=== PATIENT | male | born 1940 | race Caucasian/White ===

== ENCOUNTER 2022-02-24 15:16 | Inpatient (IN) | payer OTHER, MEDICAID ==
[~2022-02-24] VITALS: Ht 162.6 cm; Wt 52.6 kg
[2022-02-24 15:29] VITALS: BP_SYST 159
--- NOTE | 2022-02-24 15:29 | NUR ---
Placed in room 6 . Placed on stone lathe operator, blood pressure machine and pulse oximeter. To gown for exam. Side rails up. Report given to IRMA NGUYEN.
--- NOTE | 2022-02-24 15:30 | NUR ---
first encounter to pt at this time. pt aubree moon from [facility] here c/o generalized weakness, not eating today. AOx1 baseline, resp even and unlabored. pt in gown and attached to bell captain. IVF given. vss nad. wctm.
--- NOTE | 2022-02-24 15:35 | NUR ---
ER at bedside examining patient.
[2022-02-24] MEDS: NACL 0.9% 1,000 ML IV ONE ×2 (16:00→16:07)
[2022-02-24 16:28] LABS: BASOPHILS % (AUTO) 0.2 % (0.0-2.0); EOSINOPHILS # (AUTO) 0.1 K/uL (0.0-0.4); EOSINOPHILS % (AUTO) 1.3 % (0.0-4.0); HEMATOCRIT 41.9 % (36-54); HEMOGLOBIN 13.6 g/dL (14.0-18.0); LYMPHOCYTES # (AUTO) 0.3 K/uL (1.0-5.5); LYMPHOCYTES % (AUTO) 3.2 % (20.5-51.5); MEAN CORPUSCULAR HEMOGLOBIN 26 pg (27-31); MEAN CORPUSCULAR HGB CONC 33 % (32-36); MEAN CORPUSCULAR VOLUME 81 fL (79.0-98.0); MONOCYTES # (AUTO) 0.5 K/uL (0.0-1.0); NEUTROPHILS # (AUTO) 7.4 K/uL (1.8-7.7); NEUTROPHILS % (AUTO) 89.3 % (40.0-70.0); PLATELET COUNT (AUTO) 285 K/uL (130-430); RED BLOOD CELL COUNT(AUTO) 5.17 MIL/uL (4.2-6.2); RED CELL DISTRIBUTION WIDTH 15.1 % (9.0-15.0); WHITE BLOOD COUNT (AUTO) 8.3 K/uL (4.8-10.8)
[2022-02-24] MEDS ORDERED: IPRATROPIUM/ALBUTEROL SULFATE 3 ML AMPUL.NEB (DUONEB) INH ONE (16:30)
--- NOTE | 2022-02-24 16:35 | NUR ---
RT at bedside for breathing tx
[2022-02-24 16:39] LABS: ANION GAP 10 (5-15); CALCIUM 8.4 mg/dL (8.4-11.0); CHLORIDE 112 mmol/L (98-107); CREATININE 1.62 mg/dL (0.55-1.30); GLUCOSE 173 mg/dL (70-99); POTASSIUM 3.7 mmol/L (3.5-5.1); UREA NITROGEN, BLOOD 39 mg/dL (8-21)
[2022-02-24 16:48] LABS: ALANINE AMINOTRANSFERASE 22 U/L (12-78); ALBUMIN 2.1 g/dL (3.4-4.8); ASPARTATE AMINOTRANSFERASE 35 U/L (10-37); TOTAL BILIRUBIN 0.7 mg/dL (0.0-1.0)
[2022-02-24] MEDS ORDERED: DONE10TA44 PO (17:06)
[2022-02-24] MEDS ORDERED: CLOP75TA32 PO (17:06)
[2022-02-24] MEDS ORDERED: MULT-1117 PO (17:06)
[2022-02-24] MEDS ORDERED: MEMA5TAB PO (17:06)
[2022-02-24] MEDS ORDERED: DOCU-144 PO (17:06)
[2022-02-24] MEDS ORDERED: LIP20 PO (17:06)
[2022-02-24 17:08] LABS: INR 1.1 (0.80-1.20); PROTHROMBIN TIME 11.3 SECS (9.5-12.5)
[2022-02-24] MEDS ORDERED: LEVE750T4 PO (17:09)
[2022-02-24] MEDS ORDERED: METO25TA6 PO (17:09)
--- NOTE | 2022-02-24 18:27 | NUR ---
in and out cathed, pt tolerated procedure well. very minimal urine output, 3cc. will try to send to lab for ua. IV bolusing for dehydration. pt saturated diaper, pt is cleaned and partial linens changed.
--- NOTE | 2022-02-24 18:42 | NUR ---
Admit bed requested Patient will be admitted to care of . Admitted to TELE unit. Diagnosis PNA Inpatient (Yes or No) YES Observation (Yes or No) NO Orientation concerns or request close to nursing station (Yes or No) NO Covid Status NEGATIVE On vent or bipap NO Isolation requirements NO Needs a sitter NO From Home (Yes or if No enter name of facility) [facility] Requires Dialysis (Yes or No) NO Med Rec Completed (Yes of No) YES
[2022-02-24] MEDS ORDERED: cefTRIAXone 1 GM IVPB PREMIX 50 ML IV ONE (18:45)
[2022-02-24] MEDS ORDERED: NACL 0.9% 1,000 ML IV ONE (18:45)
--- NOTE | 2022-02-24 19:18 | NUR ---
care endorsed to IRMA Vasquez
--- NOTE | 2022-02-24 19:20 | NUR ---
Assuming care for pt at this time. Pt awake and alert. Able to follow commands. Pt admitted to Tele at this time and pend room assignment. Pt RR even, nonlabored. No signs of pain. Vitals are WNL. Will cont to monitor.
[2022-02-24 21:00] VITALS: BP_SYST 128
--- NOTE | 2022-02-24 21:05 | NUR ---
ADMISSION NOTE Received patient from ER via gurney. Patient admitted with diagnosis of PNEUMONIA. Patient oriented to hospital routine, call light, toileting and safety-patient verbalized understanding.
[2022-02-24 22:00] VITALS: BP_SYST 139
--- NOTE | 2022-02-24 22:27 | NUR ---
at bedside Dr. Herrera at bedside to see pt. Addendum: 02/25/22 at 0239 by Angela Grubbs RN MD aware of elevated Trop, BNP, and lactic acid.
[2022-02-24] MEDS ORDERED: KCL 20 mEq in D5/0.45NS 1000mL 1,000 ML IV ONE (22:36)
[2022-02-24] MEDS ORDERED: LevALBUTEROL HCL 1.25 MG/0.5 ML *CONC.* VIAL.NEB (XOPENEX CONC.) INH PRN (22:45)
[2022-02-24] MEDS ORDERED: ACETAMINOPHEN 325 MG TABLET PO PRN (22:45)
[2022-02-24] MEDS: POTASSIUM CHLORIDE 20 MEQ in D5/0.45 NS 1,000 ML IV SCH (22:50)
[2022-02-24] MEDS ORDERED: AZITHROMYCIN 500 MG/VIAL (ZITHROMAX) IV ONE (23:08)
[2022-02-24] MEDS: AZITHROMYCIN 500 MG in NS 250 ML IV SCH (23:38)
[2022-02-24] MEDS: ENOXAPARIN SODIUM 40 MG/0.4 ML SYRINGE SUBCUT SCH (23:40)
--- NOTE | 2022-02-24 23:40 | NUR ---
IV antibiotic Zithromax administered at order rate L.FA 18G, good blood return. To monitor.
[2022-02-24] MEDS: LevALBUTEROL HCL 1.25 MG/0.5 ML *CONC.* VIAL.NEB (XOPENEX CONC.) INH SCH (23:59)
--- NOTE | 2022-02-25 00:12 | NUR ---
Pt receiving breathing treatment. O2 sat 93% on room air.
[2022-02-25 01:15] VITALS: BP_SYST 128
[2022-02-25] MEDS: LevALBUTEROL HCL 1.25 MG/0.5 ML *CONC.* VIAL.NEB (XOPENEX CONC.) INH SCH ×2 (07:18→15:00)
[2022-02-25 08:13] LABS: ANION GAP 10 (5-15); CALCIUM 8.1 mg/dL (8.4-11.0); CHLORIDE 114 mmol/L (98-107); CREATININE 1.43 mg/dL (0.55-1.30); GLUCOSE 157 mg/dL (70-99); POTASSIUM 4.4 mmol/L (3.5-5.1); UREA NITROGEN, BLOOD 35 mg/dL (8-21)
[2022-02-25] MEDS: CLOPIDOGREL BISULFATE 75 MG TABLET PO SCH (08:32)
[2022-02-25] MEDS: MULTIVITAMINS TAB 1 TABLET PO SCH (08:32)
[2022-02-25] MEDS: MEMANTINE HCL 5 MG TABLET PO SCH ×2 (08:32→21:30)
[2022-02-25] MEDS: levETIRAcetam 500 MG TABLET PO SCH ×2 (08:32→21:30)
[2022-02-25] MEDS: DOCUSATE SODIUM 100 MG CAPSULE PO SCH ×2 (08:32→21:30)
[2022-02-25] MEDS: METOPROLOL TARTRATE 25 MG TABLET PO SCH ×2 (08:33→21:31)
[2022-02-25] MEDS: POTASSIUM CHLORIDE 20 MEQ in D5/0.45 NS 1,000 ML IV SCH (11:05)
[2022-02-25 12:03] LABS: BASOPHILS # (AUTO) 0.1 K/uL (0.0-0.2); BASOPHILS % (AUTO) 0.8 % (0.0-2.0); EOSINOPHILS % (AUTO) 0.1 % (0.0-4.0); HEMATOCRIT 40.2 % (36-54); HEMOGLOBIN 13.1 g/dL (14.0-18.0); LYMPHOCYTES # (AUTO) 0.3 K/uL (1.0-5.5); LYMPHOCYTES % (AUTO) 4.1 % (20.5-51.5); MEAN CORPUSCULAR HEMOGLOBIN 26 pg (27-31); MEAN CORPUSCULAR HGB CONC 33 % (32-36); MEAN CORPUSCULAR VOLUME 81 fL (79.0-98.0); MONOCYTES # (AUTO) 0.4 K/uL (0.0-1.0); MONOCYTES % (AUTO) 4.9 % (1.7-9.3); NEUTROPHILS # (AUTO) 7.5 K/uL (1.8-7.7); NEUTROPHILS % (AUTO) 90.1 % (40.0-70.0); PLATELET COUNT (AUTO) 287 K/uL (130-430); RED BLOOD CELL COUNT(AUTO) 4.98 MIL/uL (4.2-6.2); RED CELL DISTRIBUTION WIDTH 14.9 % (9.0-15.0); WHITE BLOOD COUNT (AUTO) 8.3 K/uL (4.8-10.8)
--- NOTE | 2022-02-25 13:22 | NUR ---
Dietitian Recommendations *consider dysphagia evaluation (diagnosis of PNA, history of dysphagia) to determine appropriate liquid consistency *re-weigh the patient, admission weight of 58# documented 02/24 @ 2200 is likely in error; weight documented 02/24 at 1529 of 130# is also likely in error *encourage the patient to eat proteins first at meals *small, frequent meals as tolerated *RD to f/u and make appropriate supplement recommendation *check A1c Please refer to nutrition assessment for details. DENISSE, WILMER
[2022-02-25 15:31] VITALS: BP_SYST 133
--- NOTE | 2022-02-25 17:15 | NUR ---
CONSULTATION PAGED REASON FOR CONSULTATION BILATERAL PNEUMONIA WAS CONSULT CALED?Y PERSON WHO WAS NOTIFIED:MARIA DOLORES CONSULTING PHYSICIAN:DIVYA WATT ([employer] B[employer] WAREHOUSE RECEIVER)MARIA DOLORES GATE TECHNICIAN SPECIALTY:PLMONARY GATE TECHNICIAN PHONE NUMBER:[phone] REQUESTING PHYSICIAN:DELILAH RICKS
--- NOTE | 2022-02-25 17:31 | NUR ---
CONSULT: CARDIO CHF DR. AMEZQUITA [phone] S/W: AVTAR
[2022-02-25] MEDS ORDERED: cefTRIAXone 1 GM in D5W 50 ML IV SCH (18:45)
--- NOTE | 2022-02-25 19:35 | NUR ---
ROUNDS PATIENT RESTING COMFORTABLY IN BED, CONFUSED, VITALS STABLE, NO SIGNS OF ANY PAIN AND DISCOMFORT NOTED. ASSESSMENT DONE AND DOCUMENTED. SEE FLOWSHEET. NEEDS ATTENDED TO. SAFETY AND FALL MEASURES IN PLACED. CALL LIGHT PLACED WITHIN REACH.
[2022-02-25 20:00] VITALS: BP_SYST 121
[2022-02-25] MEDS: ATORVASTATIN 20 MG TABLET PO SCH (21:30)
[2022-02-25] MEDS: DONEPEZIL HCL 5 MG TABLET (ARICEPT) PO SCH (21:30)
[2022-02-25] MEDS: MEGESTROL ACETATE 400 MG/10 ML UDC PO SCH (21:30)
[2022-02-25] MEDS: AZITHROMYCIN 500 MG in NS 250 ML IV SCH (21:56)
[2022-02-25] MEDS: ENOXAPARIN SODIUM 40 MG/0.4 ML SYRINGE SUBCUT SCH (22:08)
[2022-02-26] MEDS: LevALBUTEROL HCL 1.25 MG/0.5 ML *CONC.* VIAL.NEB (XOPENEX CONC.) INH SCH ×4 (00:11→23:24)
--- NOTE | 2022-02-26 00:14 | NUR ---
PATIENT RESTING: Patient resting quietly. No acute distress noted. Vital signs within normal range.
[2022-02-26 00:15] VITALS: BP_SYST 127
[2022-02-26] MEDS: POTASSIUM CHLORIDE 20 MEQ in D5/0.45 NS 1,000 ML IV SCH ×2 (03:55→20:45)
--- NOTE | 2022-02-26 06:50 | NUR ---
CLOSING NOTES PATIENT AWAKE, VITALS STABLE, REFUSED BLOOD DRAW BY LAB FOR A.M. LABS AT THIS TIME AND WILL COME BACK LATER. ALL NEEDS ATTENDED TO. WILL ENDORSE TO INCOMING SHIFT.
[2022-02-26 08:00] VITALS: BP_SYST 134
--- NOTE | 2022-02-26 08:00 | NUR ---
Recd pt calm, provided pt with breakfast, pt able to sit up in bed and tolerated puree diet. All needs anticipated and met.
[2022-02-26] MEDS: levETIRAcetam 500 MG TABLET PO SCH ×2 (08:17→22:11)
[2022-02-26] MEDS: MEGESTROL ACETATE 400 MG/10 ML UDC PO SCH ×2 (08:17→22:12)
[2022-02-26] MEDS: CLOPIDOGREL BISULFATE 75 MG TABLET PO SCH (08:17)
[2022-02-26] MEDS: MULTIVITAMINS TAB 1 TABLET PO SCH (08:17)
[2022-02-26] MEDS: METOPROLOL TARTRATE 25 MG TABLET PO SCH ×2 (08:18→22:12)
[2022-02-26] MEDS: DOCUSATE SODIUM 100 MG CAPSULE PO SCH ×2 (08:18→22:11)
[2022-02-26] MEDS: MEMANTINE HCL 5 MG TABLET PO SCH ×2 (08:19→22:11)
[2022-02-26 09:04] LABS: ANION GAP 8 (5-15); CALCIUM 8.4 mg/dL (8.4-11.0); CHLORIDE 117 mmol/L (98-107); GLUCOSE 141 mg/dL (70-99); POTASSIUM 4.6 mmol/L (3.5-5.1); UREA NITROGEN, BLOOD 39 mg/dL (8-21)
[2022-02-26 09:22] LABS: TOTAL BILIRUBIN 0.5 mg/dL (0.0-1.0)
[2022-02-26 09:36] LABS: ALANINE AMINOTRANSFERASE 87 U/L (12-78); ASPARTATE AMINOTRANSFERASE 115 U/L (10-37)
--- NOTE | 2022-02-26 11:00 | NUR ---
Dr Herrera at the bedside, assess pt. pt gets confused and agitated at time, encouraged pt to eat and drink fluids.
[2022-02-26 12:00] VITALS: BP_SYST 131
[2022-02-26] MEDS: PIPERACILLIN/TAZO 2.25G/DEX-IS 50 ML IV SCH ×2 (12:37→18:25)
[2022-02-26] MEDS: ASPIRIN 81 MG TAB.CHEW PO SCH (12:42)
[2022-02-26 14:42] LABS: BASOPHILS # (AUTO) 0.3 K/uL (0.0-0.2); BASOPHILS % (AUTO) 3.1 % (0.0-2.0); EOSINOPHILS # (AUTO) 0.1 K/uL (0.0-0.4); EOSINOPHILS % (AUTO) 0.7 % (0.0-4.0); HEMATOCRIT 42.2 % (36-54); HEMOGLOBIN 13.8 g/dL (14.0-18.0); LYMPHOCYTES # (AUTO) 0.5 K/uL (1.0-5.5); LYMPHOCYTES % (AUTO) 5.9 % (20.5-51.5); MEAN CORPUSCULAR HEMOGLOBIN 27 pg (27-31); MEAN CORPUSCULAR HGB CONC 33 % (32-36); MEAN CORPUSCULAR VOLUME 82 fL (79.0-98.0); MONOCYTES # (AUTO) 0.5 K/uL (0.0-1.0); MONOCYTES % (AUTO) 6.4 % (1.7-9.3); NEUTROPHILS # (AUTO) 7.1 K/uL (1.8-7.7); NEUTROPHILS % (AUTO) 83.9 % (40.0-70.0); PLATELET COUNT (AUTO) 312 K/uL (130-430); RED BLOOD CELL COUNT(AUTO) 5.15 MIL/uL (4.2-6.2); RED CELL DISTRIBUTION WIDTH 15.8 % (9.0-15.0); WHITE BLOOD COUNT (AUTO) 8.4 K/uL (4.8-10.8)
--- NOTE | 2022-02-26 15:00 | NUR ---
Full bath given, all linen changed, pt had small bm, skin kept clean and dry.
[2022-02-26 16:00] VITALS: BP_SYST 128
[2022-02-26 19:07] LABS: CHOLESTEROL 112 mg/dL (<200); HDL CHOLESTEROL 49 mg/dL (>45); LDL CHOLESTEROL 68 mg/dL (<100); TRIGLYCERIDES 67 mg/dL (30-150)
--- NOTE | 2022-02-26 19:35 | NUR ---
ROUNDS PATIENT RESTING IN BED, VITALS STABLE, NO SIGNS OF ANY PAIN AND DISCOMFORT NOTED. NEEDS ATTENDED TO. SAFETY AND FALL MEASURES IN PLACED. CALL LIGHT PLACED WITHIN REACH.
[2022-02-26] MEDS: ATORVASTATIN 20 MG TABLET PO SCH (22:11)
[2022-02-26] MEDS: ENOXAPARIN SODIUM 40 MG/0.4 ML SYRINGE SUBCUT SCH (22:11)
[2022-02-26] MEDS: DONEPEZIL HCL 5 MG TABLET (ARICEPT) PO SCH (22:11)
[2022-02-26] MEDS: AZITHROMYCIN 500 MG in NS 250 ML IV SCH (22:22)
[2022-02-27] MEDS: PIPERACILLIN/TAZO 2.25G/DEX-IS 50 ML IV SCH ×4 (00:13→17:52)
[2022-02-27 01:02] VITALS: BP_SYST 160
--- NOTE | 2022-02-27 06:15 | NUR ---
IV REINSERTION IV FOUND TO BE OUT, REINSERTED ON THE LEFT UPPER ARM G.22, PATENT.
[2022-02-27] MEDS: LevALBUTEROL HCL 1.25 MG/0.5 ML *CONC.* VIAL.NEB (XOPENEX CONC.) INH SCH ×3 (07:16→23:48)
[2022-02-27 08:00] VITALS: BP_SYST 144
--- NOTE | 2022-02-27 08:00 | NUR ---
Recd pt still sleepy this morning, encouraged pt to eat breakfast and drink fluids, IVF at 60ml/hr. continue to monitor pt closely.
[2022-02-27] MEDS: METOPROLOL TARTRATE 25 MG TABLET PO SCH ×2 (08:44→21:00)
[2022-02-27] MEDS: MEGESTROL ACETATE 400 MG/10 ML UDC PO SCH ×2 (08:44→21:00)
[2022-02-27] MEDS: levETIRAcetam 500 MG TABLET PO SCH ×2 (08:44→21:00)
[2022-02-27] MEDS: DOCUSATE SODIUM 100 MG CAPSULE PO SCH ×2 (08:44→21:00)
[2022-02-27] MEDS: ASPIRIN 81 MG TAB.CHEW PO SCH (08:44)
[2022-02-27] MEDS: MULTIVITAMINS TAB 1 TABLET PO SCH (08:45)
[2022-02-27] MEDS: MEMANTINE HCL 5 MG TABLET PO SCH ×2 (08:45→21:00)
[2022-02-27] MEDS: CLOPIDOGREL BISULFATE 75 MG TABLET PO SCH (08:45)
[2022-02-27 11:26] VITALS: BP_SYST 149
--- NOTE | 2022-02-27 11:26 | NUR ---
rt notes 1126 Pt on 2LNC, per MD Moreno increased o2 to 4LNC. pt not cooperative, keeps removing o2. will cont to monitor pt.
--- NOTE | 2022-02-27 11:30 | NUR ---
Dr Moreno at the bedside, ordered increase 02 to 4 L n/c and keep pt npo due to more lethargic. orders carried out. 02 sats 94% on 4 Liters. continue to monitor pt closely.
[2022-02-27] MEDS ORDERED: FUROSEMIDE 40 MG/4 ML VIAL IVP ONE (11:45)
--- NOTE | 2022-02-27 12:30 | NUR ---
Chest ultrasound done at the bedside.
--- NOTE | 2022-02-27 13:15 | NUR ---
Dr Herrera at the bedside, aware pt npo and pt more lethargic. Pt remains SR at 89 on the monitor. pt had small bm, pt's skin kept clean and dry. continue to monitor pt closely.
[2022-02-27 15:30] VITALS: BP_SYST 131
--- NOTE | 2022-02-27 16:00 | NUR ---
Obtained order for PICC line placement, called son twice, unable to leave a msg. Will continue to call, to obtain informed consent for PICC line, since pt has h/o dementia and unable to sign the form.
[2022-02-27] MEDS: POTASSIUM CHLORIDE 20 MEQ in D5/0.45 NS 1,000 ML IV SCH (17:58)
--- NOTE | 2022-02-27 18:20 | NUR ---
PT WAS SEEN FOR DYSPHAGIA. PT HAD MILD POCKETING, SEVERE DELAY AND COUGH FOR PUREE DIET WITH HTL. RECOMMENDATION NOTHING BY MOUTH
[2022-02-27 20:00] VITALS: BP_SYST 143
[2022-02-27] MEDS: ATORVASTATIN 20 MG TABLET PO SCH (21:00)
[2022-02-27] MEDS: DONEPEZIL HCL 5 MG TABLET (ARICEPT) PO SCH (21:00)
[2022-02-27] MEDS: FUROSEMIDE 20 MG/2 ML VIAL IVP SCH (22:06)
[2022-02-27] MEDS: AZITHROMYCIN 500 MG in NS 250 ML IV SCH (22:07)
[2022-02-27] MEDS: ENOXAPARIN SODIUM 40 MG/0.4 ML SYRINGE SUBCUT SCH (22:08)
[2022-02-28] VITALS: BP_SYST 145
[2022-02-28] MEDS ORDERED: PIPERACILLIN/TAZOBACTAM 2.25 GM VIAL IV ONE (01:07)
[2022-02-28] MEDS: PIPERACILLIN/TAZO 2.25G/DEX-IS 50 ML IV SCH ×4 (01:58→18:09)
[2022-02-28] MEDS: POTASSIUM CHLORIDE 20 MEQ in D5/0.45 NS 1,000 ML IV SCH (05:09)
[2022-02-28 06:53] LABS: BASOPHILS % (AUTO) 0.2 % (0.0-2.0); EOSINOPHILS % (AUTO) 0.2 % (0.0-4.0); HEMATOCRIT 43.5 % (36-54); HEMOGLOBIN 14.4 g/dL (14.0-18.0); LYMPHOCYTES # (AUTO) 0.3 K/uL (1.0-5.5); MEAN CORPUSCULAR HEMOGLOBIN 27 pg (27-31); MEAN CORPUSCULAR HGB CONC 33 % (32-36); MEAN CORPUSCULAR VOLUME 81 fL (79.0-98.0); MONOCYTES # (AUTO) 0.6 K/uL (0.0-1.0); MONOCYTES % (AUTO) 5.7 % (1.7-9.3); NEUTROPHILS # (AUTO) 9.6 K/uL (1.8-7.7); NEUTROPHILS % (AUTO) 90.9 % (40.0-70.0); PLATELET COUNT (AUTO) 269 K/uL (130-430); RED BLOOD CELL COUNT(AUTO) 5.36 MIL/uL (4.2-6.2); RED CELL DISTRIBUTION WIDTH 15.3 % (9.0-15.0); WHITE BLOOD COUNT (AUTO) 10.6 K/uL (4.8-10.8)
[2022-02-28 07:12] LABS: ANION GAP 11 (5-15); CALCIUM 8.1 mg/dL (8.4-11.0); CHLORIDE 115 mmol/L (98-107); GLUCOSE 104 mg/dL (70-99); POTASSIUM 3.7 mmol/L (3.5-5.1); UREA NITROGEN, BLOOD 40 mg/dL (8-21)
[2022-02-28] MEDS: LevALBUTEROL HCL 1.25 MG/0.5 ML *CONC.* VIAL.NEB (XOPENEX CONC.) INH SCH ×3 (07:16→23:46)
[2022-02-28 07:21] LABS: ALANINE AMINOTRANSFERASE 64 U/L (12-78); ALBUMIN 1.9 g/dL (3.4-4.8); ASPARTATE AMINOTRANSFERASE 47 U/L (10-37); TOTAL BILIRUBIN 0.8 mg/dL (0.0-1.0)
[2022-02-28 07:53] VITALS: BP_SYST 145
[2022-02-28 08:00] VITALS: BP_SYST 110
[2022-02-28] MEDS: METOPROLOL TARTRATE 25 MG TABLET PO SCH ×2 (09:00→21:00)
[2022-02-28] MEDS: levETIRAcetam 500 MG TABLET PO SCH ×2 (09:00→21:00)
[2022-02-28] MEDS: ASPIRIN 81 MG TAB.CHEW PO SCH (09:00)
[2022-02-28] MEDS: DOCUSATE SODIUM 100 MG CAPSULE PO SCH ×2 (09:00→21:00)
[2022-02-28] MEDS: MEGESTROL ACETATE 400 MG/10 ML UDC PO SCH ×2 (09:00→21:00)
[2022-02-28] MEDS: CLOPIDOGREL BISULFATE 75 MG TABLET PO SCH (09:00)
[2022-02-28] MEDS: MULTIVITAMINS TAB 1 TABLET PO SCH (09:00)
[2022-02-28] MEDS: MEMANTINE HCL 5 MG TABLET PO SCH ×2 (09:00→21:00)
[2022-02-28 09:12] LABS: INR 1.3 (0.80-1.20); PROTHROMBIN TIME 12.9 SECS (9.5-12.5)
[2022-02-28] MEDS: FUROSEMIDE 20 MG/2 ML VIAL IVP SCH (09:22)
[2022-02-28 11:27] VITALS: BP_SYST 148
[2022-02-28 15:29] VITALS: BP_SYST 139
[2022-02-28] MEDS ORDERED: *PPN PER PHARMACY XX PRN (19:30)
[2022-02-28] MEDS: KCL 20 mEq in D5/0.45NS 1000mL 1,000 ML IV SCH (19:30)
[2022-02-28 20:08] VITALS: BP_SYST 155
[2022-02-28] MEDS: ATORVASTATIN 20 MG TABLET PO SCH (21:00)
[2022-02-28] MEDS: DONEPEZIL HCL 5 MG TABLET (ARICEPT) PO SCH (21:00)
[2022-02-28] MEDS: ENOXAPARIN SODIUM 40 MG/0.4 ML SYRINGE SUBCUT SCH (23:33)
[2022-02-28] MEDS: AZITHROMYCIN 500 MG in NS 250 ML IV SCH (23:35)
[2022-03-01] MEDS: PIPERACILLIN/TAZO 2.25G/DEX-IS 50 ML IV SCH ×4 (00:46→18:26)
[2022-03-01] MEDS: KCL 20 mEq in D5/0.45NS 1000mL 1,000 ML IV SCH (06:08)
--- NOTE | 2022-03-01 06:17 | NUR ---
STAFF ENTERED WRONG AMOUNT FOR PO. PATIENT IS STILL NPO.
[2022-03-01] MEDS: LevALBUTEROL HCL 1.25 MG/0.5 ML *CONC.* VIAL.NEB (XOPENEX CONC.) INH SCH ×2 (07:06→15:28)
[2022-03-01 07:07] LABS: BASOPHILS % (AUTO) 0.2 % (0.0-2.0); EOSINOPHILS % (AUTO) 0.4 % (0.0-4.0); HEMATOCRIT 45.3 % (36-54); LYMPHOCYTES # (AUTO) 0.2 K/uL (1.0-5.5); LYMPHOCYTES % (AUTO) 2.4 % (20.5-51.5); MEAN CORPUSCULAR HEMOGLOBIN 27 pg (27-31); MEAN CORPUSCULAR HGB CONC 33 % (32-36); MEAN CORPUSCULAR VOLUME 81 fL (79.0-98.0); MONOCYTES # (AUTO) 0.4 K/uL (0.0-1.0); MONOCYTES % (AUTO) 4.6 % (1.7-9.3); NEUTROPHILS # (AUTO) 8.3 K/uL (1.8-7.7); NEUTROPHILS % (AUTO) 92.4 % (40.0-70.0); PLATELET COUNT (AUTO) 288 K/uL (130-430); RED CELL DISTRIBUTION WIDTH 15.5 % (9.0-15.0)
[2022-03-01] MEDS: MULTIVITAMINS TAB 1 TABLET PO SCH (09:00)
[2022-03-01] MEDS: METOPROLOL TARTRATE 25 MG TABLET PO SCH ×2 (09:00→21:04)
[2022-03-01] MEDS: MEGESTROL ACETATE 400 MG/10 ML UDC PO SCH ×2 (09:00→21:05)
[2022-03-01] MEDS: DOCUSATE SODIUM 100 MG CAPSULE PO SCH ×2 (09:00→20:58)
[2022-03-01] MEDS: ASPIRIN 81 MG TAB.CHEW PO SCH (09:00)
[2022-03-01] MEDS: CLOPIDOGREL BISULFATE 75 MG TABLET PO SCH (09:00)
[2022-03-01] MEDS: MEMANTINE HCL 5 MG TABLET PO SCH ×2 (09:00→21:05)
[2022-03-01] MEDS: levETIRAcetam 500 MG TABLET PO SCH ×2 (09:00→21:05)
[2022-03-01] MEDS: FUROSEMIDE 20 MG/2 ML VIAL IVP SCH (09:28)
[2022-03-01 09:46] LABS: ALANINE AMINOTRANSFERASE 57 U/L (12-78); ANION GAP 13 (5-15); ASPARTATE AMINOTRANSFERASE 46 U/L (10-37); CALCIUM 8.6 mg/dL (8.4-11.0); CHLORIDE 115 mmol/L (98-107); CREATININE 1.66 mg/dL (0.55-1.30); GLUCOSE 123 mg/dL (70-99); PHOSPHORUS 2.9 mg/dL (2.7-4.5); POTASSIUM 3.5 mmol/L (3.5-5.1); TOTAL BILIRUBIN 0.9 mg/dL (0.0-1.0); UREA NITROGEN, BLOOD 36 mg/dL (8-21)
[2022-03-01 10:53] LABS: TRIGLYCERIDES 94 mg/dL (30-150)
[2022-03-01 12:38] VITALS: BP_SYST 142
[2022-03-01 16:19] VITALS: BP_SYST 150
[2022-03-01 20:00] VITALS: BP_SYST 121
[2022-03-01] MEDS: MVI IV SCH ×7 (20:05)
[2022-03-01] MEDS: K PHOS IV SCH ×7 (20:05)
[2022-03-01] MEDS: [UNRECOGNIZED DRUG - OTHER] IV SCH ×7 (20:05)
[2022-03-01] MEDS: POTASSIUM ACETATE IV SCH ×7 (20:05)
[2022-03-01] MEDS: TPN PERIPHERAL IV SCH ×7 (20:05)
[2022-03-01] MEDS: DONEPEZIL HCL 5 MG TABLET (ARICEPT) PO SCH (21:04)
[2022-03-01] MEDS: ATORVASTATIN 20 MG TABLET PO SCH (21:05)
[2022-03-02 00:22] VITALS: BP_SYST 122
[2022-03-02] MEDS: PIPERACILLIN/TAZO 2.25G/DEX-IS 50 ML IV SCH ×4 (00:44→17:02)
[2022-03-02] MEDS: ENOXAPARIN SODIUM 40 MG/0.4 ML SYRINGE SUBCUT SCH (00:45)
[2022-03-02] MEDS: LevALBUTEROL HCL 1.25 MG/0.5 ML *CONC.* VIAL.NEB (XOPENEX CONC.) INH SCH ×3 (02:18→14:40)
[2022-03-02] MEDS: KCL 20 mEq in D5/0.45NS 1000mL 1,000 ML IV SCH (04:53)
[2022-03-02 08:00] VITALS: BP_SYST 159
[2022-03-02] MEDS: ASPIRIN 81 MG TAB.CHEW PO SCH (09:00)
[2022-03-02] MEDS: CLOPIDOGREL BISULFATE 75 MG TABLET PO SCH (09:00)
[2022-03-02] MEDS: DOCUSATE SODIUM 100 MG CAPSULE PO SCH ×2 (09:00→20:49)
[2022-03-02] MEDS: METOPROLOL TARTRATE 25 MG TABLET PO SCH ×2 (09:00→20:49)
[2022-03-02] MEDS: MEMANTINE HCL 5 MG TABLET PO SCH ×2 (09:00→20:50)
[2022-03-02] MEDS: MULTIVITAMINS TAB 1 TABLET PO SCH (09:00)
[2022-03-02] MEDS: MEGESTROL ACETATE 400 MG/10 ML UDC PO SCH ×2 (09:00→20:50)
[2022-03-02] MEDS: levETIRAcetam 500 MG TABLET PO SCH ×2 (09:00→20:49)
[2022-03-02] MEDS: FUROSEMIDE 20 MG/2 ML VIAL IVP SCH (09:15)
--- NOTE | 2022-03-02 09:41 | NUR ---
S/W DR. VINSON, NEW ORDER FOR GI CONSULT WITH DR. JOINER FOR PEG PLACEMENT AND MD ORDER TO MAKE TOTAL OF IVF (40 MLS/HR) AND TPN (40 MLS/HR) AT 80 MLS/HR
[2022-03-02 09:51] LABS: ANION GAP 8 (5-15); CALCIUM 8.4 mg/dL (8.4-11.0); CHLORIDE 115 mmol/L (98-107); GLUCOSE 198 mg/dL (70-99); POTASSIUM 3.9 mmol/L (3.5-5.1); UREA NITROGEN, BLOOD 43 mg/dL (8-21)
[2022-03-02 09:56] LABS: ALANINE AMINOTRANSFERASE 84 U/L (12-78); ALBUMIN 1.8 g/dL (3.4-4.8); ASPARTATE AMINOTRANSFERASE 82 U/L (10-37); TOTAL BILIRUBIN 0.9 mg/dL (0.0-1.0)
--- NOTE | 2022-03-02 09:59 | NUR ---
CONSULTATION PAGED REASON FOR CONSULTATION:PEG PLACEMENT WAS CONSULT CALLED?Y PERSON WHO WAS NOTIFIED:TELLY CONSULTING PHYSICIAN:JORI WANG (CHRISTIAN [employer] GREEN CHAIN MARKER) FUR LINER SPECIALTYGI: FUR LINER PHONE NUMBER:[phone] REQUESTING PHYSICIAN:DELILAH RICKS
[2022-03-02] MEDS ORDERED: FUROSEMIDE 20 MG/2 ML VIAL IVP ONE (12:00)
--- NOTE | 2022-03-02 12:00 | NUR ---
RICHAR POWERS, INFORMED HIM REGARDING PT'S BREATHING IS SHALLOW AND PT NOTED TO BE CONGESTED. ON O2 2L NC, SATURATING 89-94%. NEW ORDERS RECEIVED: DC IVF, CONTINUE TPN, CHANGED NC TO 4L, DO STAT ABG, GIVE EXTRA DOSE OF 20MG LASIX IVP, AND PLACE HICKMAN CATHETER, 16 BULGARIAN, FOR STRICT I&O. Addendum: 03/02/22 at 1340 by Thirty one IRMA Elliott RN PT NOW SATURATING 94-96%, ON 4L NC, BREATHING LESS SHALLOW AND PT LOOKS MORE COMFORTABLE THAN EARLIER. WILL CONTINUE TO MONITOR PT CLOSELY. Addendum: 03/02/22 at 1712 by Thirty one IRMA Elliott RN DR. POWERS ROUNDING IN THE UNIT. PER MD CHANGE NC TO OXIMIZER. RT DONE. PT SATURATING 94-96% MORE STABLE. WILL CONTINUE TO MONITOR PT CLOSELY.
[2022-03-02 12:44] VITALS: BP_SYST 153
[2022-03-02 16:26] VITALS: BP_SYST 164
[2022-03-02] MEDS ORDERED: hydrALAZINE HCL 20 MG/ML VIAL IVP PRN (16:30)
[2022-03-02 17:04] VITALS: BP_SYST 156
--- NOTE | 2022-03-02 17:11 | NUR ---
HYDRALAZINE GIVEN PRN FOR SBP 160-170S.
--- NOTE | 2022-03-02 18:15 | NUR ---
PT'S BREATHING STATUS IS STABLE BUT NOTED STILL TO BE SHALLOW BUT O2 SAT IS MORE STABLE AND NOT DESATURATING ON OXIMIZER 7L, 94-96%. DR. VINSON AND DR. POWERS EXAMINED PT AND PER MD JUST CONTINUE TO MONITOR PT. PT WILL HAVE BIPAP PRN FOR RESPIRATORY DISTRESS. ALL CARE NEEDS MET. PLACED AN OPTIFOAM DRESSING OVER BONY PROMINENCE OF SACRAL AREA TO PREVENT SKIN BREAKDOWN. PT WAS TURNED EVERY 2 HOURS THROUGHOUT THE DAY, HEELS OFFLOADED. FALL/SAFETY/ASPIRATION/COMFORT/SEIZURE MEASURES IN PLACE. BED IN LOW POSITION. WILL ENDORSE CARE TO PM NURSE. Addendum: 03/02/22 at 1917 by Thirty one IRMA Elliott RN PT'S BREATHING STATUS SEEMS TO WORSEN AT THIS TIME, PT NOT RESPONSIVE. BIPAP PLACED BY RT. RICHAR POWERS AND ALISSON. ENDORSED TO IRMA VILLALOBOS, TO F/U.
[2022-03-02 19:32] VITALS: BP_SYST 159
[2022-03-02] MEDS: FAT EMULSIONS 250 ML IV SCH (20:39)
[2022-03-02] MEDS: POTASSIUM ACETATE IV SCH ×7 (20:42)
[2022-03-02] MEDS: TPN PERIPHERAL IV SCH ×7 (20:42)
[2022-03-02] MEDS: [UNRECOGNIZED DRUG - OTHER] IV SCH ×7 (20:42)
[2022-03-02] MEDS: K PHOS IV SCH ×7 (20:42)
[2022-03-02] MEDS: MVI IV SCH ×7 (20:42)
[2022-03-02] MEDS: DONEPEZIL HCL 5 MG TABLET (ARICEPT) PO SCH (20:49)
[2022-03-02] MEDS: ATORVASTATIN 20 MG TABLET PO SCH (20:49)
[2022-03-02] MEDS ORDERED: [UNRECOGNIZED DRUG - OTHER] IV ONE (21:00)
[2022-03-02] MEDS ORDERED: NS IV ONE (21:00)
[2022-03-03] VITALS (18 sets, daily range): BP systolic 62–150
[2022-03-03] MEDS: PIPERACILLIN/TAZO 2.25G/DEX-IS 50 ML IV SCH ×5 (00:12→23:36)
[2022-03-03] MEDS: ENOXAPARIN SODIUM 40 MG/0.4 ML SYRINGE SUBCUT SCH ×2 (00:13→23:28)
[2022-03-03] MEDS: LevALBUTEROL HCL 1.25 MG/0.5 ML *CONC.* VIAL.NEB (XOPENEX CONC.) INH SCH ×4 (00:36→23:29)
--- NOTE | 2022-03-03 07:05 | NUR ---
Received report from shift supervisor rn RN and assumed patient care.
--- NOTE | 2022-03-03 07:10 | NUR ---
Upon assessment, patient's is using accessory muscles to to breath. Saturation is 85%s in NC oxymizer of 15L, informed RT, will call Dr. Herrera for further details. 0730: RT at bedside, placed patient on bipap 100%, still waiting for Dr. Herrera to call back. Will reinforce if needed throughout the shift. 15: Dr. Herrera called back, informed about patient's use of accessory muscles to breathe and now was placed on bipap at 100% saturating in the 95-100%. No additional orders noted at the moment and said OK to move patient to ICU. Will inform dye house vat worker for further details.
[2022-03-03 07:44] LABS: BASOPHILS % (AUTO) 0.2 % (0.0-2.0); HEMATOCRIT 46.9 % (36-54); LYMPHOCYTES # (AUTO) 0.1 K/uL (1.0-5.5); LYMPHOCYTES % (AUTO) 0.6 % (20.5-51.5); MEAN CORPUSCULAR VOLUME 83 fL (79.0-98.0); MONOCYTES # (AUTO) 0.5 K/uL (0.0-1.0); MONOCYTES % (AUTO) 3.6 % (1.7-9.3); NEUTROPHILS # (AUTO) 14.3 K/uL (1.8-7.7); NEUTROPHILS % (AUTO) 95.6 % (40.0-70.0); PLATELET COUNT (AUTO) 251 K/uL (130-430); RED BLOOD CELL COUNT(AUTO) 5.64 MIL/uL (4.2-6.2); RED CELL DISTRIBUTION WIDTH 16.3 % (9.0-15.0); WHITE BLOOD COUNT (AUTO) 14.9 K/uL (4.8-10.8)
--- NOTE | 2022-03-03 07:45 | NUR ---
RT NOTES OBSERVED PT FISH GULPING WITH RESPIRATORY RATE OF 42 BREATHS PER MINUTE AND LOW SPO2 79% ON 12 LPM OXYMIZER. IMMEDIATELY PLACED PT ON BIPAP PER PRN ORDER 05/31 100% FIO2. NOTIFIED MONROE [place]INTANA TO CALL DR VINSON. PT SPO2 INCREASED TO 99% ON BIPAP. RESPIRATORY RATE STILL IN 36-[address] VINSON ORDERED TO SEND PT TO ICU. Addendum: 03/03/22 at 0844 by Rl Phelps RT Amended: Links added.
[2022-03-03] MEDS ORDERED: MIDAZOLAM HCL 5 MG/5 ML VIAL ONE ×2 (08:22→11:32)
[2022-03-03] MEDS ORDERED: fentaNYL CITRATE/PF 100 MCG/2 ML AMP ONE (08:22)
[2022-03-03] MEDS ORDERED: CEFAZOLIN 1 GM IVPB PREMIX 50 ML IV ONE (08:30)
[2022-03-03 08:39] LABS: ALBUMIN 1.6 g/dL (3.4-4.8); ANION GAP 14 (5-15); CALCIUM 8.5 mg/dL (8.4-11.0); CHLORIDE 114 mmol/L (98-107); CREATININE 2.65 mg/dL (0.55-1.30); GLUCOSE 161 mg/dL (70-99); PHOSPHORUS 5.5 mg/dL (2.7-4.5); POTASSIUM 4.3 mmol/L (3.5-5.1); UREA NITROGEN, BLOOD 61 mg/dL (8-21)
[2022-03-03] MEDS: DOCUSATE SODIUM 100 MG CAPSULE PO SCH ×2 (09:00→21:30)
[2022-03-03] MEDS: levETIRAcetam 500 MG TABLET PO SCH (09:00)
[2022-03-03] MEDS: MEGESTROL ACETATE 400 MG/10 ML UDC PO SCH ×2 (09:00→21:31)
[2022-03-03] MEDS: MEMANTINE HCL 5 MG TABLET PO SCH ×2 (09:00→21:32)
[2022-03-03] MEDS: CLOPIDOGREL BISULFATE 75 MG TABLET PO SCH (09:00)
[2022-03-03] MEDS: MULTIVITAMINS TAB 1 TABLET PO SCH (09:00)
[2022-03-03] MEDS: ASPIRIN 81 MG TAB.CHEW PO SCH (09:00)
[2022-03-03] MEDS: METOPROLOL TARTRATE 25 MG TABLET PO SCH ×2 (09:00→21:31)
[2022-03-03] MEDS: FUROSEMIDE 20 MG/2 ML VIAL IVP SCH (09:36)
[2022-03-03 10:10] LABS: ALANINE AMINOTRANSFERASE 333 U/L (12-78); ASPARTATE AMINOTRANSFERASE 458 U/L (10-37)
--- NOTE | 2022-03-03 10:12 | NUR ---
Received pt from [facility] and report received from Madonna SOLIS. Pt tachypnic and RR rate 30's on bipap 05/31/100%. HR 112 and 02 sats 92%. Pt using accessory muscles to breath and barley opens eyes to same. Does not follow instructions and lying in bed. Right PICC line with tpn at 40 and lipids at 5 and NS 3cc/hr. ABG ordered. RT at bedside.
--- NOTE | 2022-03-03 10:12 | NUR ---
Transferred patient to ICU 7, provided bedside report to IRMA Owens. Patient had no complications noted during the transfer over, RT at bedside, informed Dr. Herrera about the transfer. No additional orders noted at the moment, will reinforce if needed throughout the shift.
--- NOTE | 2022-03-03 10:40 | NUR ---
BP labile and low at times, SBP 80's and 90's. Dr. frye made aware and orders for levophed if needed given.
[2022-03-03] MEDS ORDERED: NOREPINEPHRINE BITARTRATE 4 MG in NS 246 ML IV PRN (10:45)
--- NOTE | 2022-03-03 10:52 | NUR ---
Dr. Cisse in to see pt. No orders left. call out to Dr. Moreno to inform him of the pts transfer to ICU.
--- NOTE | 2022-03-03 11:02 | NUR ---
Spoke with regarding pts condition. Reported ABG's and that pt is using accessory muscles to breath and is tachypnic , rate in the 30's with stats 70-80's. Orders left for intubation and ER called.
--- NOTE | 2022-03-03 11:30 | NUR ---
Pt intubated with a 7.5 ET taped 24cm lip line by Dr. Moreno. CXR done and reviewed by Dr. Moreno. Vent settings AC 20/350/100%/P3. Pt moving hands toward ET and restraints applied to keep pt from removing ET. SR on monitor. Will monitor for distress on the ventilator.
--- NOTE | 2022-03-03 11:30 | NUR ---
rt notes 1130 Pt was intubated by MD Moreno, AC20, 350VT ,PEEP 3 ,100% FIO2, 7.5/24CM LL. CO2 DETECTOR COLOR CHANGED TO YELLOW . BILATERAL CX RISE SEEN/HEARD.PT SATURATING 98%. PER MD ABG IN 1HOUR.
[2022-03-03] MEDS: ALBUMIN HUMAN 25% 50 ML IV SCH ×3 (12:02→23:36)
[2022-03-03] MEDS: PROPOFOL DRIP 100 ML IV PRN (12:12)
--- NOTE | 2022-03-03 12:30 | NUR ---
Diprivan started at 10 mcgs/kg/min for comfort on the ventilator.
[2022-03-03 12:53] LABS: MEAN CORPUSCULAR HEMOGLOBIN 27 pg (27-31); MEAN CORPUSCULAR HGB CONC 32 % (32-36)
--- NOTE | 2022-03-03 14:22 | NUR ---
rt notes 1422 Per PO2 ABG results, decreased fio2 to 50%. pt saturating 98%. will cont to monitor pt.
[2022-03-03] MEDS: METHYLPREDNISOLONE SOD SUCC 40 MG/ML VIAL IVP SCH (17:49)
--- NOTE | 2022-03-03 18:04 | NUR ---
Resting comfortably on vent with diprivan at 10 mcgs. SR on monitor. BP 122/69. Pt grimaces to deep stimuli. No visitors today. Sacral area with a foam dressing for prevention redness. Pt has multiple scratches to extremities, mostly lower legs. Right eye bruised.
--- NOTE | 2022-03-03 18:15 | NUR ---
Called Dr. Ruth with a consult,spoke with Luh from the exchange
[2022-03-03] MEDS ORDERED: TPN PERIPHERAL IV SCH ×6 (21:00)
[2022-03-03] MEDS ORDERED: MVI IV SCH ×6 (21:00)
[2022-03-03] MEDS ORDERED: [UNRECOGNIZED DRUG - OTHER] IV SCH ×6 (21:00)
[2022-03-03] MEDS ORDERED: POTASSIUM ACETATE IV SCH ×6 (21:00)
[2022-03-03] MEDS ORDERED: TRACE ELEMENTS IV SCH ×6 (21:00)
[2022-03-03] MEDS: levETIRAcetam 500 MG in NS 100 ML IV SCH (21:28)
[2022-03-03] MEDS: FAT EMULSIONS 250 ML IV SCH (21:29)
[2022-03-03] MEDS: DONEPEZIL HCL 5 MG TABLET (ARICEPT) PO SCH (21:30)
[2022-03-03] MEDS: ATORVASTATIN 20 MG TABLET PO SCH (21:31)
[2022-03-03] MEDS: CEFEPIME 1 GM in D5W 50 ML IV SCH (21:51)
[2022-03-03] MEDS ORDERED: CEFEPIME 1 GM/VIAL (MAXIPIME) ONE (22:53)
[2022-03-04] VITALS (33 sets, daily range): BP systolic 91–121
[2022-03-04] MEDS: METHYLPREDNISOLONE SOD SUCC 40 MG/ML VIAL IVP SCH ×4 (03:12→20:06)
[2022-03-04] MEDS: PIPERACILLIN/TAZO 2.25G/DEX-IS 50 ML IV SCH (06:10)
--- NOTE | 2022-03-04 07:10 | NUR ---
Received report from shift supervisor rn RN, and assumed patient care.
[2022-03-04] MEDS: LevALBUTEROL HCL 1.25 MG/0.5 ML *CONC.* VIAL.NEB (XOPENEX CONC.) INH SCH ×3 (08:06→23:02)
[2022-03-04 08:14] LABS: ALANINE AMINOTRANSFERASE 248 U/L (12-78); ALBUMIN 1.8 g/dL (3.4-4.8); ANION GAP 13 (5-15); ASPARTATE AMINOTRANSFERASE 139 U/L (10-37); CALCIUM 7.8 mg/dL (8.4-11.0); CHLORIDE 112 mmol/L (98-107); GLUCOSE 269 mg/dL (70-99); PHOSPHORUS 3.6 mg/dL (2.7-4.5); POTASSIUM 3.9 mmol/L (3.5-5.1); TOTAL BILIRUBIN 0.8 mg/dL (0.0-1.0); UREA NITROGEN, BLOOD 67 mg/dL (8-21)
[2022-03-04] MEDS: CEFEPIME 1 GM in D5W 50 ML IV SCH (08:40)
[2022-03-04] MEDS: levETIRAcetam 500 MG in NS 100 ML IV SCH ×2 (08:41→20:02)
[2022-03-04] MEDS: MEGESTROL ACETATE 400 MG/10 ML UDC PO SCH ×2 (08:42→20:05)
[2022-03-04] MEDS: PROPOFOL DRIP 100 ML IV PRN (08:42)
[2022-03-04] MEDS: MEMANTINE HCL 5 MG TABLET PO SCH ×2 (08:43→20:12)
[2022-03-04] MEDS: MULTIVITAMINS TAB 1 TABLET PO SCH (08:43)
[2022-03-04] MEDS: DOCUSATE SODIUM 100 MG CAPSULE PO SCH ×2 (08:44→20:06)
[2022-03-04] MEDS: CLOPIDOGREL BISULFATE 75 MG TABLET PO SCH (08:45)
[2022-03-04] MEDS: METOPROLOL TARTRATE 25 MG TABLET PO SCH ×2 (08:45→20:07)
[2022-03-04] MEDS: ASPIRIN 81 MG TAB.CHEW PO SCH (08:45)
--- NOTE | 2022-03-04 09:00 | NUR ---
Patient had a bowel movement (large loose), cleaned patient up, performed CHG bath on patient, and patient was able to tolerate the big turns. No additional complications noted at the moment, will reinforce if needed throughout the shift.
[2022-03-04] MEDS ORDERED: PANTOPRAZOLE SODIUM 40 MG TAB PO ONE (10:00)
--- NOTE | 2022-03-04 10:01 | NUR ---
Dr. Cisse rounded at bedside, MD is aware of elevated sodium level of 149, and MD ordered to start TF on patient and slowly taper off TPN. No additional orders noted at the moment, will reinforce if needed throughout the shift.
[2022-03-04] MEDS ORDERED: PANTOPRAZOLE SODIUM 40 MG/VIAL (PROTONIX) IVP ONE (10:15)
--- NOTE | 2022-03-04 11:15 | NUR ---
Dr. Moreno rounded at bedside, MD is aware of most current ABG level, MD is OK with restarting tube feeds, MD ordered an amp of bicarb, and made some changes on the ventilator. Will inform RT about the changes, no additional orders noted at the moment. Will reinforce if needed throughout the shift.
[2022-03-04 11:17] LABS: BASOPHILS # (AUTO) 0.1 K/uL (0.0-0.2); BASOPHILS % (AUTO) 0.4 % (0.0-2.0); HEMATOCRIT 41.6 % (36-54); LYMPHOCYTES # (AUTO) 0.1 K/uL (1.0-5.5); LYMPHOCYTES % (AUTO) 0.7 % (20.5-51.5); MEAN CORPUSCULAR VOLUME 83 fL (79.0-98.0); MONOCYTES # (AUTO) 0.2 K/uL (0.0-1.0); MONOCYTES % (AUTO) 1.3 % (1.7-9.3); NEUTROPHILS % (AUTO) 97.6 % (40.0-70.0); PLATELET COUNT (AUTO) 167 K/uL (130-430); RED BLOOD CELL COUNT(AUTO) 4.99 MIL/uL (4.2-6.2); RED CELL DISTRIBUTION WIDTH 16.4 % (9.0-15.0); WHITE BLOOD COUNT (AUTO) 16.4 K/uL (4.8-10.8)
[2022-03-04] MEDS ORDERED: SODIUM BICARBONATE 8.4% JECT 50 MEQ/50 ML SYRINGE IV ONE (11:30)
[2022-03-04] MEDS: CEFEPIME 2 GM in D5W 100 ML IV SCH (11:40)
[2022-03-04] MEDS: metroNIDAZOLE 500 mg/NS 100 ML IV SCH ×2 (13:26→22:30)
--- NOTE | 2022-03-04 16:15 | NUR ---
Patient had a bowel movement, cleaned patient up, changed linens, and patient tolerated the big turns, and will reinforce if needed throughout the shift.
--- NOTE | 2022-03-04 19:02 | NUR ---
RECEIVED REPORT ON PATIENT FROM MONROE SOLIS. PATIENT RESTING COMFORTABLY NO SIGNS OR SYMPTOMS OF DISTRESS PROPOFOL REMAINS AT 10MCG/KG, RESPONSE TO NOXIOUS STIMULI, GAG AND COUGH PRESENT PERRLA 3 BRISK. SR ON MONITOR BLOOD PRESSURE STABLE MAP GREATER THAN 65 AT THIS TIME. HICKMAN CATHETER PATENT, PATIENT REQUIRES CLEANING UP HAD A BOWEL MOVEMENT DURING SHIFT CHANGE REPORT. SKIN INTACT EXCEPT FOR EXISTING AREAS ON BILATERAL LOWER EXTREMITIES PRESENT ON ADMISSION THAT ARE OPEN TO AIR AND LIGHT SCRATCHES IN DIFFERING STAGES OF HEALING DIFFUSE ON BODY/ABDOMEN. WILL CONTINUE TO MONITOR AND REPORT CHANGES IN CONDITION. ANALY SOLIS
[2022-03-04] MEDS: DONEPEZIL HCL 5 MG TABLET (ARICEPT) PO SCH (20:06)
[2022-03-04] MEDS: ATORVASTATIN 20 MG TABLET PO SCH (20:07)
[2022-03-04] MEDS: FAT EMULSIONS 250 ML IV SCH (20:14)
[2022-03-04] MEDS: K PHOS IV SCH ×8 (20:16)
[2022-03-04] MEDS: POTASSIUM ACETATE IV SCH ×8 (20:16)
[2022-03-04] MEDS: [UNRECOGNIZED DRUG - OTHER] IV SCH ×8 (20:16)
[2022-03-04] MEDS: MVI IV SCH ×8 (20:16)
[2022-03-04] MEDS: TPN PERIPHERAL IV SCH ×8 (20:16)
[2022-03-04] MEDS ORDERED: ACETAZOLAMIDE SODIUM IV SCH (21:00)
[2022-03-04] MEDS ORDERED: NS IV SCH (21:00)
[2022-03-04] MEDS: ENOXAPARIN SODIUM 40 MG/0.4 ML SYRINGE SUBCUT SCH (22:31)
[2022-03-05] VITALS (31 sets, daily range): BP systolic 84–110
[2022-03-05] MEDS: TPN PERIPHERAL IV SCH ×8 (01:21)
[2022-03-05] MEDS: [UNRECOGNIZED DRUG - OTHER] IV SCH ×8 (01:21)
[2022-03-05] MEDS: POTASSIUM ACETATE IV SCH ×8 (01:21)
[2022-03-05] MEDS: MVI IV SCH ×8 (01:21)
[2022-03-05] MEDS: K PHOS IV SCH ×8 (01:21)
[2022-03-05] MEDS: FAT EMULSIONS 250 ML IV SCH (01:22)
[2022-03-05] MEDS: PROPOFOL DRIP 100 ML IV PRN ×2 (01:47→16:37)
[2022-03-05] MEDS: metroNIDAZOLE 500 mg/NS 100 ML IV SCH ×3 (05:39→20:45)
[2022-03-05 06:53] LABS: BASOPHILS % (AUTO) 0.1 % (0.0-2.0); LYMPHOCYTES # (AUTO) 0.1 K/uL (1.0-5.5); LYMPHOCYTES % (AUTO) 0.4 % (20.5-51.5); MEAN CORPUSCULAR VOLUME 81 fL (79.0-98.0); MONOCYTES # (AUTO) 0.3 K/uL (0.0-1.0); MONOCYTES % (AUTO) 1.8 % (1.7-9.3); NEUTROPHILS # (AUTO) 14.7 K/uL (1.8-7.7); NEUTROPHILS % (AUTO) 97.7 % (40.0-70.0); PLATELET COUNT (AUTO) 137 K/uL (130-430); RED BLOOD CELL COUNT(AUTO) 4.17 MIL/uL (4.2-6.2); RED CELL DISTRIBUTION WIDTH 15.6 % (9.0-15.0)
--- NOTE | 2022-03-05 07:05 | NUR ---
Received report from hotel night auditor RN, and assumed patient care.
--- NOTE | 2022-03-05 07:15 | NUR ---
Received report from cnc machinist 2nd shift RN, and assumed patient care.
[2022-03-05 07:20] LABS: ALANINE AMINOTRANSFERASE 147 U/L (12-78); ALBUMIN 1.3 g/dL (3.4-4.8); ANION GAP 9 (5-15); ASPARTATE AMINOTRANSFERASE 86 U/L (10-37); CALCIUM 7.3 mg/dL (8.4-11.0); CHLORIDE 109 mmol/L (98-107); CREATININE 2.91 mg/dL (0.55-1.30); PHOSPHORUS 1.9 mg/dL (2.7-4.5); POTASSIUM 3.5 mmol/L (3.5-5.1); TOTAL BILIRUBIN 0.5 mg/dL (0.0-1.0); UREA NITROGEN, BLOOD 83 mg/dL (8-21)
--- NOTE | 2022-03-05 07:45 | NUR ---
Received critical lab value of elevated glucose level, called Dr. Gan and informed MD that patient needs sliding scale and is aware of critical lab value. Will place order on meditech, no additional orders noted at the moment. Will reinforce if needed throughout the shift.
[2022-03-05 07:49] LABS: GLUCOSE 403 mg/dL (70-99)
[2022-03-05] MEDS: LevALBUTEROL HCL 1.25 MG/0.5 ML *CONC.* VIAL.NEB (XOPENEX CONC.) INH SCH ×3 (07:59→23:10)
[2022-03-05] MEDS ORDERED: GLUCOSE (DEXTROSE) ORAL GEL -Adults PO PRN (08:15)
[2022-03-05] MEDS ORDERED: D5W 1,000 ML IV PRN (08:15)
[2022-03-05] MEDS: MULTIVITAMINS TAB 1 TABLET PO SCH (08:18)
[2022-03-05] MEDS: ASPIRIN 81 MG TAB.CHEW PO SCH (08:18)
[2022-03-05] MEDS: MEGESTROL ACETATE 400 MG/10 ML UDC PO SCH ×2 (08:18→20:45)
[2022-03-05] MEDS: PANTOPRAZOLE SODIUM 40 MG/VIAL (PROTONIX) IVP SCH (08:18)
[2022-03-05] MEDS: METHYLPREDNISOLONE SOD SUCC 40 MG/ML VIAL IVP SCH ×2 (08:18→20:48)
[2022-03-05] MEDS: levETIRAcetam 500 MG in NS 100 ML IV SCH ×2 (08:18→20:45)
[2022-03-05] MEDS: DOCUSATE SODIUM 100 MG CAPSULE PO SCH ×2 (08:19→20:45)
[2022-03-05] MEDS: METOPROLOL TARTRATE 25 MG TABLET PO SCH ×2 (08:19→20:46)
[2022-03-05] MEDS: CLOPIDOGREL BISULFATE 75 MG TABLET PO SCH (08:19)
[2022-03-05] MEDS: MEMANTINE HCL 5 MG TABLET PO SCH ×2 (08:19→20:46)
[2022-03-05] MEDS: INSULIN LISPRO SLIDING SCALE 100 UNITS/ML VIAL (humaLOG) SUBCUT PRN ×2 (08:34→14:55)
[2022-03-05] MEDS: INSULIN GLARGINE 100 UNITS/ML 10 ML VIAL SUBCUT SCH (08:57)
[2022-03-05] MEDS ORDERED: PANTOPRAZOLE SODIUM 40 MG TAB PO SCH (09:00)
--- NOTE | 2022-03-05 09:00 | NUR ---
Dr. Cisse rounded at bedside, provided MD about nursing updates from PM shift, no new orders noted at the moment. MD wants to increase TF to rate of 40ml/hr, will wait for changes on meditech orders. No additional complications noted at the moment, will reinforce if needed throughout the shift.
--- NOTE | 2022-03-05 09:03 | NUR ---
Nutrition follow up Admitting Diagnosis: PNA Reviewed Pertinent Medical/Surgical Hx: EMR, primary RN, patient Medical History Comment: PMH: HLD, DM, HTN, CHF, stroke, seizure disorder, dementia The patient transferred to ICU on 03/03, intubated (03/03- ), sedated w/ Propofol, PPN/IL ordered per MD, also w/ NGTF Jevity 1.2 at 20 ml/h. S/p dysphagia evaluation on 02/27, per ST note: mild pocketing, severe delay and cough for pureed diet w/ HTL, recommendation for NPO. Noted w/ K+ 3.5, low end of normal and trending down, low phos at 1.9, mag remains WNL at 2.0. POC glucose recently ordered w/ result of 361 mg/dL this a.m., glucose 403 mg/dL, MD adjusting insulin. Current Diet Order/Nutrition Support (03/03) TPN: D20%, AA8.5% @ 50 ml/h + 250 ml 20% IL to provide 1112 Kcals/day --per RN, MD is planning to DC TPN (03/04) TF Jevity 1.2 @ 20 ml/h + FWF 100 ml q6h -- per RN, plan is to increase TF to 40 ml/h per MD order Pertinent Medications: Propofol @ 2.7 ml/h provides 71 kcals, Lantus 15u daily, Lispro SSI, solumedrol, colace, multivitamin, Megace Pertinent Labs: K+ 3.5 (low end of normal and trending down), phos 1.9(L), mag 2.0(WNL), glucose 403(H!) Height (Feet): 5'4" NEW Weight: 45.35kg/100# --appears to be accurate Body Mass Index: 17.2 Kg/m2 (underweight) Usual Weight: 102# per [facility] [place]/Adjusted Body Weight 130# (59.1kg) Last BM: 03/05 x2 Usual Diet At Home: CCHO, mechanical soft per [facility] Skin Integrity Comment: Kayden 9 on 03/05 at 0410 BLE: scratches, scabs in various stage of healing R eye: ecchymosis Estimated Energy Expenditure (kcals/day) NEW 1520 Kcals (PSU 2010, Ve: 11.7, Tmax: 97.5 F) Estimated Protein Required (g/day) NEW 45-59 (CBW 45.4kg 1-1.3 gm pro/kg per renal jennifer., malnourished) Estimated Fluid Required (l/day) fluid per MD 2/2 ANGE Problem/Etiology/Signs/Symptoms Malnutrition likely due to chronic disease (hx of stroke, dementia and dysphagia) AEB low weight for height w/ BMI 17.2 Kg/m2 *Revised Inadequate oral intake AEB respiratory failure requiring intubation, enteral nutrition *New Altered nutrition-related labs R/t endocrine and renal dysfunction AEB elevated blood glucose, BUN and creatinine *New Expected Outcomes/Goals Monitor tolerance of nutrition provision, w/ goal of patient meeting >85% of estimated nutrition needs, promote gradual weight gain, support goals of care Dietitian Recommendations *suggest to DC TPN as the patient is tolerating TF *monitor K+, phos, mag closely for refeeding, MD to replete electrolytes *suggest change of TF formula to Nepro w/ goal rate of 35 ml/h (total volume 840 ml) Nepro @ 35 ml/h provides 1512 kcals, 68 gm protein, 611 ml free water from formula to meet 99% of kcal goal, 115% of upper end of protein need *additional water flush per MD discretion *check A1c *suggest to hold Megace until able to resume a PO diet Follow Up High Risk: F/U in 2-3days
[2022-03-05 09:33] LABS: HEMATOCRIT 33.6 % (36-54)
[2022-03-05] MEDS: CEFEPIME 2 GM in D5W 100 ML IV SCH (10:03)
--- NOTE | 2022-03-05 10:08 | NUR ---
Dietitian Recommendations *suggest to DC TPN as the patient is tolerating TF *monitor K+, phos, mag closely for refeeding, MD to replete electrolytes *suggest change of TF formula to Nepro w/ goal rate of 35 ml/h (total volume 840 ml) Nepro @ 35 ml/h provides 1512 kcals, 68 gm protein, 611 ml free water from formula to meet 99% of kcal goal, 115% of upper end of protein need *additional water flush per MD discretion *check A1c *suggest to hold Megace until able to resume a PO diet Please refer to nutrition follow up for details. DENISSE, RD
--- NOTE | 2022-03-05 10:45 | NUR ---
Patient had a bowel movement, changed linens, patient tolerated the big turns, no complications noted at the moment, will reinforce if needed throughout the shift.
--- NOTE | 2022-03-05 11:45 | NUR ---
Dr. Moreno rounded at bedside, MD is aware of most current ABG levels, most current drips rates, is aware of 2-3x BM per shift, and the elevated glucose levels. Made some changes on the TPN order, will wait for orders to be placed on meditech. No additional complications or new orders noted at the moment, will reinforce if needed throughout the shift.
--- NOTE | 2022-03-05 14:30 | NUR ---
[address] morris and sent to lab. Addendum: 03/05/22 at 1438 by Ermelinda Jensen RT Amended: Links added.
--- NOTE | 2022-03-05 15:00 | NUR ---
Dr. Thomas rounded at bedside, provided nursing update, will place orders on meditech and wait for orders to be verified. Will reinforce if needed throughout the shift.
[2022-03-05] MEDS ORDERED: ALBUMIN HUMAN 25% 100 ML IV ONE (15:30)
[2022-03-05] MEDS: DONEPEZIL HCL 5 MG TABLET (ARICEPT) PO SCH (20:46)
[2022-03-05] MEDS: ATORVASTATIN 20 MG TABLET PO SCH (20:46)
[2022-03-05] MEDS ORDERED: TPN PERIPHERAL IV SCH ×10 (21:00)
[2022-03-05] MEDS ORDERED: SODIUM ACETATE IV SCH ×10 (21:00)
[2022-03-05] MEDS ORDERED: POTASSIUM ACETATE IV SCH ×10 (21:00)
[2022-03-05] MEDS ORDERED: [UNRECOGNIZED DRUG - OTHER] IV SCH ×10 (21:00)
[2022-03-05] MEDS: ENOXAPARIN SODIUM 40 MG/0.4 ML SYRINGE SUBCUT SCH (21:38)
[2022-03-06] VITALS (23 sets, daily range): BP systolic 86–121
[2022-03-06] MEDS: INSULIN LISPRO SLIDING SCALE 100 UNITS/ML VIAL (humaLOG) SUBCUT PRN ×4 (03:45→21:01)
[2022-03-06] MEDS: metroNIDAZOLE 500 mg/NS 100 ML IV SCH ×3 (04:46→20:47)
[2022-03-06 07:15] LABS: BASOPHILS % (AUTO) 0.1 % (0.0-2.0); HEMATOCRIT 32.4 % (36-54); LYMPHOCYTES # (AUTO) 0.1 K/uL (1.0-5.5); LYMPHOCYTES % (AUTO) 0.7 % (20.5-51.5); MEAN CORPUSCULAR VOLUME 81 fL (79.0-98.0); MONOCYTES # (AUTO) 0.3 K/uL (0.0-1.0); MONOCYTES % (AUTO) 1.9 % (1.7-9.3); NEUTROPHILS # (AUTO) 13.5 K/uL (1.8-7.7); NEUTROPHILS % (AUTO) 97.3 % (40.0-70.0); PLATELET COUNT (AUTO) 139 K/uL (130-430); RED BLOOD CELL COUNT(AUTO) 4.02 MIL/uL (4.2-6.2); RED CELL DISTRIBUTION WIDTH 15.7 % (9.0-15.0); WHITE BLOOD COUNT (AUTO) 13.9 K/uL (4.8-10.8)
[2022-03-06] MEDS: LevALBUTEROL HCL 1.25 MG/0.5 ML *CONC.* VIAL.NEB (XOPENEX CONC.) INH SCH ×3 (07:23→23:05)
[2022-03-06 07:45] LABS: ALANINE AMINOTRANSFERASE 123 U/L (12-78); ALBUMIN 1.8 g/dL (3.4-4.8); ANION GAP 10 (5-15); ASPARTATE AMINOTRANSFERASE 67 U/L (10-37); CALCIUM 7.8 mg/dL (8.4-11.0); CHLORIDE 108 mmol/L (98-107); CREATININE 3.11 mg/dL (0.55-1.30); GLUCOSE 306 mg/dL (70-99); PHOSPHORUS 2.6 mg/dL (2.7-4.5); TOTAL BILIRUBIN 0.6 mg/dL (0.0-1.0); UREA NITROGEN, BLOOD 92 mg/dL (8-21)
[2022-03-06 10:12] LABS: POTASSIUM 2.9 mmol/L (3.5-5.1)
[2022-03-06] MEDS: METHYLPREDNISOLONE SOD SUCC 40 MG/ML VIAL IVP SCH ×2 (10:30→20:47)
[2022-03-06] MEDS: ASPIRIN 81 MG TAB.CHEW PO SCH (10:31)
[2022-03-06] MEDS: PANTOPRAZOLE SODIUM 40 MG/VIAL (PROTONIX) IVP SCH (10:31)
[2022-03-06] MEDS: MEMANTINE HCL 5 MG TABLET PO SCH ×2 (10:32→20:50)
[2022-03-06] MEDS: DOCUSATE SODIUM 100 MG CAPSULE PO SCH ×2 (10:32→20:50)
[2022-03-06] MEDS: CLOPIDOGREL BISULFATE 75 MG TABLET PO SCH (10:33)
[2022-03-06] MEDS: MULTIVITAMINS TAB 1 TABLET PO SCH (10:33)
[2022-03-06] MEDS: levETIRAcetam 500 MG in NS 100 ML IV SCH ×2 (10:34→20:47)
[2022-03-06] MEDS: PROPOFOL DRIP 100 ML IV PRN (10:40)
[2022-03-06] MEDS: METOPROLOL TARTRATE 25 MG TABLET PO SCH ×2 (13:25→20:49)
[2022-03-06] MEDS: MEGESTROL ACETATE 400 MG/10 ML UDC PO SCH ×2 (13:26→20:48)
[2022-03-06] MEDS: CEFEPIME 2 GM in D5W 100 ML IV SCH (13:27)
[2022-03-06] MEDS: INSULIN GLARGINE 100 UNITS/ML 10 ML VIAL SUBCUT SCH (14:23)
--- NOTE | 2022-03-06 15:16 | NUR ---
Wound Evaluation: Wound Consult ordered for Low Kayden Score. Patient evaluated for a low Kayden score of 12. Patient was nonverbal, nonresponsive to verbal commands, and received in a [place] Bed with an Isoflex RAPHAEL mattress with low air loss therapy initiated. Patient needs to be turned in bed. Skin assessment: 1. Right Infraorbital area: Ecchymosis with red and dark discoloration, present on admission. Recommend: No dressing needed. Continue to monitor site every shift. 2. Left Anterior Knee: Multiple brown scabs, present on admission. No odor, no drainage. Dry, stable. Site measures 8.8 cm x 6.2 cm. 3. Left Anterior Ignacio: Multiple brown scabs, present on admission. No odor, no drainage. Dry, stable. Scar tissue present on scab site. Site measures 11.0 cm x 7.2 cm. Recommend: Mingo scab areas with Betadine. No dressing needed. Continue to monitor sites every shift. 4. Left Lateral Foot: Area of broken skin (not a wound), present on admission. Recommend: No dressing needed. Continue to monitor every shift. 5. Left Dorsal Foot: Multiple small tiny black scabs, present on admission. No odor, no drainage. Dry, stable. 6. Right Dorsal Foot: Multiple small tiny black scabs, present on admission. No odor, no drainage. Dry, stable. Recommend: No dressings needed. Continue to monitor sites every shift. 7. Right Dorsal Lateral Foot: Chronic wound of unknown etiology with brown scab, present on admission. No odor, no drainage. Dry, stable. Wound measures 2.5 cm x 1.5 cm. Recommend: Mingo scab area with Betadine. Allow Betadine to air dry. Cover site with foam dressing for protection. Perform site care daily, and as needed for dressing soiling or dislodgment. Not allow involved area of foot to lay on bed or other surfaces. 8. Left Upper Extremity: Multiple small black scabs, present on admission no odor, no drainage. Dry, stable 9. Right Upper Extremity: Multiple small black scabs, present on admission no odor, no drainage. Dry, stable 10. Sacral area: Scar tissue, present on admission. Recommend: Cover scar tissue site with foam dressing for protection. Cleanse involved areas with mild soap and water for soiling. Pat dry. Apply moisture barrier cream to involved areas. Perform site care daily, and as needed for dressing soiling or dislodgment. Recommend: Reposition patient side to side only every 2 hours with pillow support. Elevate, off-load and float bilateral heels with pillows. Offload pressure areas with pillows for pressure re-distribution. Perform skin care and monitor skin integrity Q shift. Use moisture barrier cream on moisture susceptible areas QID and PRN for soiling. Maintain patient on a low air-loss mattress.
[2022-03-06] MEDS ORDERED: POTASSIUM CHLORIDE 20 MEQ/PKT PACKET NG ONE (16:30)
[2022-03-06] MEDS: KCL 20 mEq in 100 mL (PREMIX) 100 ML IV SCH ×2 (16:35→17:15)
[2022-03-06] MEDS: ALBUMIN HUMAN 25% 100 ML IV SCH ×2 (17:09→23:00)
--- NOTE | 2022-03-06 19:08 | NUR ---
RECEIVED BEDSIDE REPORT FROM DAY SHIFT RN, TPN/LIPIDS HAVE BEEN OFF PATIENT ON 18MCG PROPOFOL VITAL SIGNS STABLE, RECEIVING LAST DOSE OF IV POTASSIUM. WILL CONTINUE TO MONITOR.
[2022-03-06] MEDS: DONEPEZIL HCL 5 MG TABLET (ARICEPT) PO SCH (20:48)
[2022-03-06] MEDS: ATORVASTATIN 20 MG TABLET PO SCH (20:48)
[2022-03-06] MEDS: ENOXAPARIN SODIUM 40 MG/0.4 ML SYRINGE SUBCUT SCH (20:51)
[2022-03-06] MEDS ORDERED: POTASSIUM ACETATE IV SCH ×10 (21:00)
[2022-03-06] MEDS ORDERED: SODIUM ACETATE IV SCH ×10 (21:00)
[2022-03-06] MEDS ORDERED: TPN PERIPHERAL IV SCH ×10 (21:00)
[2022-03-06] MEDS ORDERED: [UNRECOGNIZED DRUG - OTHER] IV SCH ×10 (21:00)
[2022-03-07] VITALS (31 sets, daily range): BP systolic 83–104
[2022-03-07] MEDS: INSULIN LISPRO SLIDING SCALE 100 UNITS/ML VIAL (humaLOG) SUBCUT PRN ×4 (03:17→21:53)
[2022-03-07] MEDS: ALBUMIN HUMAN 25% 100 ML IV SCH (05:21)
[2022-03-07] MEDS: LevALBUTEROL HCL 1.25 MG/0.5 ML *CONC.* VIAL.NEB (XOPENEX CONC.) INH SCH ×3 (07:23→23:25)
[2022-03-07 07:48] LABS: ALANINE AMINOTRANSFERASE 91 U/L (12-78); ALBUMIN 3.4 g/dL (3.4-4.8); ANION GAP 13 (5-15); ASPARTATE AMINOTRANSFERASE 54 U/L (10-37); CHLORIDE 108 mmol/L (98-107); CREATININE 3.43 mg/dL (0.55-1.30); GLUCOSE 308 mg/dL (70-99); PHOSPHORUS 2.8 mg/dL (2.7-4.5); TOTAL BILIRUBIN 0.5 mg/dL (0.0-1.0)
[2022-03-07 08:22] LABS: UREA NITROGEN, BLOOD 104 mg/dL (8-21)
--- NOTE | 2022-03-07 08:27 | NUR ---
Call out to Dr. Johnson to report labs. Spoke with Luh with exchange.
[2022-03-07] MEDS: metroNIDAZOLE 500 mg/NS 100 ML IV SCH ×3 (09:53→21:28)
[2022-03-07] MEDS: ASPIRIN 81 MG TAB.CHEW PO SCH (11:19)
[2022-03-07] MEDS: MEGESTROL ACETATE 400 MG/10 ML UDC PO SCH ×2 (11:19→21:23)
[2022-03-07] MEDS: levETIRAcetam 500 MG in NS 100 ML IV SCH ×2 (11:19→21:23)
[2022-03-07] MEDS: CLOPIDOGREL BISULFATE 75 MG TABLET PO SCH (11:19)
[2022-03-07] MEDS: MULTIVITAMINS TAB 1 TABLET PO SCH (11:19)
[2022-03-07] MEDS: DOCUSATE SODIUM 100 MG CAPSULE PO SCH ×2 (11:19→21:23)
[2022-03-07] MEDS: MEMANTINE HCL 5 MG TABLET PO SCH ×2 (11:19→21:23)
[2022-03-07] MEDS: PANTOPRAZOLE SODIUM 40 MG/VIAL (PROTONIX) IVP SCH (11:20)
[2022-03-07] MEDS: METOPROLOL TARTRATE 25 MG TABLET PO SCH ×2 (11:20→21:00)
[2022-03-07] MEDS: METHYLPREDNISOLONE SOD SUCC 40 MG/ML VIAL IVP SCH ×2 (11:20→21:23)
[2022-03-07] MEDS: INSULIN GLARGINE 100 UNITS/ML 10 ML VIAL SUBCUT SCH (11:34)
[2022-03-07] MEDS: CEFEPIME 2 GM in D5W 100 ML IV SCH (12:20)
[2022-03-07] MEDS: FLUCONAZOLE 100 mg/ NS 50 ML IV SCH (13:29)
[2022-03-07] MEDS: NACL 0.9% 1,000 ML IV SCH (13:30)
[2022-03-07] MEDS: PROPOFOL DRIP 100 ML IV PRN (14:59)
--- NOTE | 2022-03-07 17:11 | NUR ---
Nutrition F/U RDN reviewed pt's current EMR including diet hx, phsyician notes, nursing notes, pertinent labs/meds/procedures, care trends, and care activity. Shortened note d/t high RD workload. Admitting Diagnosis: PNA Medical History Comment: PMH: HLD, DM, HTN, CHF, stroke, seizure disorder, dementia Subjective Information: The patient transferred to ICU on 03/03, intubated (03/03), sedated w/ Propofol, PPN/IL ordered per MD, also w/ NGTF Jevity 1.2 at 20 ml/h; both now d/c. S/p dysphagia evaluation on 02/27, per ST note: mild pocketing, severe delay and cough for pureed diet w/ HTL, recommendation for NPO. 03/07 - RD attended ICU rounds in the am and RN asked for TF clarification. Current TF order is Glucerna 1.2 at 40 mL/hr with FWF 50mL since 03/06. Per RN, TF running has been Jevity 1.5 @ 40 mL per previous order. RN changed to correct formulary, and Glucerna 1.2 seen running @ 10mL. RN and RD discussed increasing 10mL q4-6h until goal rate. Per EMR, MD changed formulary to Glucerna d/t elevated BG >400. Per RN, patient has been tolerating TF with [address] Propofol running at 17 mcg (143 kcal/day) and NS @ 80 mL/hr. Patient was seen asleep, intubated on ventilator, sedated, and he remains poorly responsive. RN reports patient avg about 2 BM per shift. Per RN, updated bed scale weight 116lbs (53kg) however may be slightly less due to blankets/ pillows on bed as well. MD to clarify free water flushes on TF order. Current Diet Order/Nutrition Support: Glucerna 1.2 @ 40 mL/hr x 24 hr plus fwf 50 mL x 1 day Height (Feet): 5'4" * NEW Weight: 53kg/116# -- bed scale 03/07 * NEW Body Mass Index: 19.1 Kg/m2 (normal) Last BM: 03/06 x2 Skin Integrity Comment: Kayden 12: BLE - scratches, scabs in various stages of healing; R eye - ecchymosis Estimated Energy Expenditure (kcals/day) 1520 Kcals (PSU 2009, Ve: 11.7, Tmax: 97.5 F) Estimated Protein Required (g/day) * NEW 53-69 (CBW 45.4kg 1-1.3 gm pro/kg per renal fxn, vent) Estimated Fluid Required (l/day) Fluid per MD 2/2 ANGE Problem/Etiology/Signs/Symptoms * Increased energy expenditure r/t respiratory failure requiring intubation a/e/b estimated energy requirements; PSU (New) * Excessive CHO intake r/t incorrect TF formulary a/e/b Jevity 1.5 @ 40mL provides 704 kcal from CHO/day or 48% of total kcals; elevated BG >400 (New) * Altered nutrition-related labs R/t endocrine and renal dysfunction AEB elevated blood glucose, BUN and creatinine (Ongoing) Expected Outcomes/Goals Tolerate EN @ goal, EN meeting >85% of estimated nutrition needs, skin integrity, wt maintenance, BM q1-3 days, nutrition-related labs trending toward NL Dietitian Recommendations * Recommend adjust TF: Glucerna 1.2 @ 50 mL (goal rate) x 24h (+ propofol) -- This provides daily: 1583 kcal (1440 kcal from EN), 72g protein, and 1102 mL fluids (972mL from EN) -- This equal 104% lower energy and 104% higher protein estimated needs * Free water flushed per MD: please update fwf in TF order * If unable to tolerate Glucerna @ goal rate, consider peptide-based formulary. Follow Up High Risk: F/U in 2-3days
--- NOTE | 2022-03-07 17:17 | NUR ---
Dietitian Recommendations * Recommend adjust TF: Glucerna 1.2 @ 50 mL (goal rate) x 24h (+propofol) -- This provides daily: 1583 kcal (1440 kcal from EN), 72g protein, and 1102 mL fluids (972mL from EN) -- This equal 104% lower energy and 104% higher protein estimated needs * Free water flushed per MD: please update fwf in TF order * If unable to tolerate Glucerna @ goal rate, consider peptide-based formulary. Please refer to Nutrition F/U for details, thanks! CC, MPH, RDN
[2022-03-07] MEDS: DONEPEZIL HCL 5 MG TABLET (ARICEPT) PO SCH (21:23)
[2022-03-07] MEDS: ATORVASTATIN 20 MG TABLET PO SCH (21:23)
[2022-03-07] MEDS: ENOXAPARIN SODIUM 40 MG/0.4 ML SYRINGE SUBCUT SCH (21:51)
[2022-03-08] VITALS (17 sets, daily range): BP systolic 89–132
[2022-03-08] MEDS: NACL 0.9% 1,000 ML IV SCH ×2 (01:30→15:07)
[2022-03-08] MEDS: INSULIN LISPRO SLIDING SCALE 100 UNITS/ML VIAL (humaLOG) SUBCUT PRN ×3 (03:08→22:00)
[2022-03-08] MEDS: metroNIDAZOLE 500 mg/NS 100 ML IV SCH ×3 (06:22→21:19)
[2022-03-08 06:37] LABS: BASOPHILS % (AUTO) 0.2 % (0.0-2.0); HEMATOCRIT 34.5 % (36-54); LYMPHOCYTES # (AUTO) 0.1 K/uL (1.0-5.5); LYMPHOCYTES % (AUTO) 0.7 % (20.5-51.5); MEAN CORPUSCULAR VOLUME 82 fL (79.0-98.0); MONOCYTES # (AUTO) 0.3 K/uL (0.0-1.0); MONOCYTES % (AUTO) 2.6 % (1.7-9.3); NEUTROPHILS # (AUTO) 9.7 K/uL (1.8-7.7); NEUTROPHILS % (AUTO) 96.5 % (40.0-70.0); PLATELET COUNT (AUTO) 133 K/uL (130-430); RED BLOOD CELL COUNT(AUTO) 4.23 MIL/uL (4.2-6.2); WHITE BLOOD COUNT (AUTO) 10.1 K/uL (4.8-10.8)
[2022-03-08] MEDS: LevALBUTEROL HCL 1.25 MG/0.5 ML *CONC.* VIAL.NEB (XOPENEX CONC.) INH SCH ×2 (07:00→15:18)
[2022-03-08] MEDS: METHYLPREDNISOLONE SOD SUCC 40 MG/ML VIAL IVP SCH ×2 (08:15→21:18)
[2022-03-08] MEDS: PANTOPRAZOLE SODIUM 40 MG/VIAL (PROTONIX) IVP SCH (08:15)
[2022-03-08] MEDS: CLOPIDOGREL BISULFATE 75 MG TABLET PO SCH (08:16)
[2022-03-08] MEDS: levETIRAcetam 500 MG in NS 100 ML IV SCH ×2 (08:16→21:17)
[2022-03-08] MEDS: DOCUSATE SODIUM 100 MG CAPSULE PO SCH ×2 (08:16→21:18)
[2022-03-08] MEDS: ASPIRIN 81 MG TAB.CHEW PO SCH (08:16)
[2022-03-08] MEDS: MEMANTINE HCL 5 MG TABLET PO SCH ×2 (08:17→21:19)
[2022-03-08] MEDS: MULTIVITAMINS TAB 1 TABLET PO SCH (08:17)
[2022-03-08] MEDS: MEGESTROL ACETATE 400 MG/10 ML UDC PO SCH ×2 (08:17→21:19)
[2022-03-08] MEDS: METOPROLOL TARTRATE 25 MG TABLET PO SCH ×2 (08:17→21:19)
[2022-03-08] MEDS: INSULIN GLARGINE 100 UNITS/ML 10 ML VIAL SUBCUT SCH (08:24)
[2022-03-08] MEDS: CEFEPIME 2 GM in D5W 100 ML IV SCH (11:31)
[2022-03-08] MEDS: FLUCONAZOLE 100 mg/ NS 50 ML IV SCH (12:57)
[2022-03-08] MEDS: PROPOFOL DRIP 100 ML IV PRN (16:09)
[2022-03-08] MEDS: ATORVASTATIN 20 MG TABLET PO SCH (21:18)
[2022-03-08] MEDS: DONEPEZIL HCL 5 MG TABLET (ARICEPT) PO SCH (21:18)
[2022-03-08] MEDS: ENOXAPARIN SODIUM 40 MG/0.4 ML SYRINGE SUBCUT SCH (22:24)
[2022-03-09] VITALS (42 sets, daily range): BP systolic 93–143
[2022-03-09] MEDS: NACL 0.9% 1,000 ML IV SCH ×2 (03:59→14:37)
[2022-03-09] MEDS: LevALBUTEROL HCL 1.25 MG/0.5 ML *CONC.* VIAL.NEB (XOPENEX CONC.) INH SCH ×3 (05:00→15:14)
[2022-03-09 06:46] LABS: ALANINE AMINOTRANSFERASE 76 U/L (12-78); ALBUMIN 2.4 g/dL (3.4-4.8); ANION GAP 12 (5-15); ASPARTATE AMINOTRANSFERASE 47 U/L (10-37); CALCIUM 8.1 mg/dL (8.4-11.0); CHLORIDE 113 mmol/L (98-107); CREATININE 3.74 mg/dL (0.55-1.30); GLUCOSE 166 mg/dL (70-99); POTASSIUM 4.3 mmol/L (3.5-5.1); TOTAL BILIRUBIN 0.6 mg/dL (0.0-1.0)
[2022-03-09 06:47] LABS: BASOPHILS % (AUTO) 0.1 % (0.0-2.0); HEMATOCRIT 35.7 % (36-54); LYMPHOCYTES # (AUTO) 0.1 K/uL (1.0-5.5); LYMPHOCYTES % (AUTO) 0.6 % (20.5-51.5); MEAN CORPUSCULAR VOLUME 82 fL (79.0-98.0); MONOCYTES # (AUTO) 0.4 K/uL (0.0-1.0); MONOCYTES % (AUTO) 2.9 % (1.7-9.3); NEUTROPHILS # (AUTO) 12.7 K/uL (1.8-7.7); NEUTROPHILS % (AUTO) 96.4 % (40.0-70.0); PLATELET COUNT (AUTO) 156 K/uL (130-430); RED BLOOD CELL COUNT(AUTO) 4.34 MIL/uL (4.2-6.2); RED CELL DISTRIBUTION WIDTH 16.8 % (9.0-15.0); WHITE BLOOD COUNT (AUTO) 13.2 K/uL (4.8-10.8)
[2022-03-09 07:52] LABS: UREA NITROGEN, BLOOD 124 mg/dL (8-21)
[2022-03-09] MEDS: levETIRAcetam 500 MG in NS 100 ML IV SCH ×2 (08:29→20:10)
[2022-03-09] MEDS: metroNIDAZOLE 500 mg/NS 100 ML IV SCH ×3 (08:29→20:10)
[2022-03-09] MEDS: DOCUSATE SODIUM 100 MG CAPSULE PO SCH ×2 (08:30→20:08)
[2022-03-09] MEDS: PANTOPRAZOLE SODIUM 40 MG/VIAL (PROTONIX) IVP SCH (08:30)
[2022-03-09] MEDS: ASPIRIN 81 MG TAB.CHEW PO SCH (08:30)
[2022-03-09] MEDS: METHYLPREDNISOLONE SOD SUCC 40 MG/ML VIAL IVP SCH ×2 (08:30→20:09)
[2022-03-09] MEDS: MULTIVITAMINS TAB 1 TABLET PO SCH (08:31)
[2022-03-09] MEDS: MEGESTROL ACETATE 400 MG/10 ML UDC PO SCH ×2 (08:31→20:08)
[2022-03-09] MEDS: MEMANTINE HCL 5 MG TABLET PO SCH ×2 (08:31→20:08)
[2022-03-09] MEDS: CLOPIDOGREL BISULFATE 75 MG TABLET PO SCH (08:31)
[2022-03-09] MEDS: METOPROLOL TARTRATE 25 MG TABLET PO SCH ×2 (08:32→20:08)
[2022-03-09] MEDS: INSULIN GLARGINE 100 UNITS/ML 10 ML VIAL SUBCUT SCH (08:59)
[2022-03-09] MEDS: CEFEPIME 2 GM in D5W 100 ML IV SCH (11:10)
[2022-03-09] MEDS: FLUCONAZOLE 100 mg/ NS 50 ML IV SCH (11:12)
[2022-03-09] MEDS: INSULIN LISPRO SLIDING SCALE 100 UNITS/ML VIAL (humaLOG) SUBCUT PRN ×2 (16:13→22:29)
--- NOTE | 2022-03-09 16:20 | NUR ---
RN NOTES DR. POWERS HERE TO SEE PATIENT, MADE AWARE OF CODE STATUS CHANGES (DNR / COMFORT MEASURES ONLY) AND FAMILY REQUEST FOR TERMINAL EXTUBATION.
[2022-03-09] MEDS ORDERED: MORPHINE SULFATE IN 0.9 % NACL 100 ML IV PRN (16:30)
--- NOTE | 2022-03-09 16:30 | NUR ---
HIGH ALERT NOTE: Called Dr. Moreno back at [phone], identified within the medical roster to verify physician authenticity. RE: Morphine drip - titrate to keep patient comfortable.
[2022-03-09] MEDS: ATORVASTATIN 20 MG TABLET PO SCH (20:08)
[2022-03-09] MEDS: DONEPEZIL HCL 5 MG TABLET (ARICEPT) PO SCH (20:08)
[2022-03-09] MEDS: ENOXAPARIN SODIUM 40 MG/0.4 ML SYRINGE SUBCUT SCH (20:09)
[2022-03-09] MEDS: PROPOFOL DRIP 100 ML IV PRN (20:12)
[2022-03-10] VITALS (45 sets, daily range): BP systolic 94–126
[2022-03-10] MEDS: NACL 0.9% 1,000 ML IV SCH ×2 (03:30→15:30)
[2022-03-10] MEDS: LevALBUTEROL HCL 1.25 MG/0.5 ML *CONC.* VIAL.NEB (XOPENEX CONC.) INH SCH ×4 (05:59→22:40)
[2022-03-10] MEDS: metroNIDAZOLE 500 mg/NS 100 ML IV SCH ×3 (06:02→21:50)
[2022-03-10] MEDS: levETIRAcetam 500 MG in NS 100 ML IV SCH ×2 (08:33→21:04)
[2022-03-10] MEDS: PANTOPRAZOLE SODIUM 40 MG/VIAL (PROTONIX) IVP SCH (08:34)
[2022-03-10] MEDS: METHYLPREDNISOLONE SOD SUCC 40 MG/ML VIAL IVP SCH ×2 (08:34→21:01)
[2022-03-10] MEDS: INSULIN GLARGINE 100 UNITS/ML 10 ML VIAL SUBCUT SCH (08:35)
[2022-03-10] MEDS: MEGESTROL ACETATE 400 MG/10 ML UDC PO SCH ×2 (08:35→21:01)
[2022-03-10] MEDS: ASPIRIN 81 MG TAB.CHEW PO SCH (08:35)
[2022-03-10] MEDS: DOCUSATE SODIUM 100 MG CAPSULE PO SCH ×2 (08:35→21:01)
[2022-03-10] MEDS: MEMANTINE HCL 5 MG TABLET PO SCH ×2 (08:36→21:01)
[2022-03-10] MEDS: MULTIVITAMINS TAB 1 TABLET PO SCH (08:36)
[2022-03-10] MEDS: CLOPIDOGREL BISULFATE 75 MG TABLET PO SCH (08:36)
[2022-03-10] MEDS: METOPROLOL TARTRATE 25 MG TABLET PO SCH ×2 (08:37→21:00)
[2022-03-10] MEDS: CEFEPIME 2 GM in D5W 100 ML IV SCH (11:09)
[2022-03-10] MEDS: FLUCONAZOLE 100 mg/ NS 50 ML IV SCH (11:09)
--- NOTE | 2022-03-10 19:00 | NUR ---
RECEIVED UNCONSCIOUS ,ORIENTED TO SELF. ON VENT SETTINGS A/C 20 TV 400 FIO2-50 PEEP 3. ON SEDATION WITH PROPOFOL @25 NS @80CC/H ORAL SUCTION DONE WITH MODERATE LOOSE SECRETIONS .VITALS DONE AND ARE WITHIN NORMAL LIMIT
[2022-03-10] MEDS: ATORVASTATIN 20 MG TABLET PO SCH (21:01)
[2022-03-10] MEDS: DONEPEZIL HCL 5 MG TABLET (ARICEPT) PO SCH (21:01)
[2022-03-10] MEDS: DEXTROSE 50%-WATER 50 ML DISP.SYRIN IVP PRN ×2 (21:15→21:16)
--- NOTE | 2022-03-10 22:00 | NUR ---
SKIN CARE GIVEN HAS EXCORIATION AROUND THE SCROTUM.
[2022-03-10] MEDS: ENOXAPARIN SODIUM 40 MG/0.4 ML SYRINGE SUBCUT SCH (22:44)
[2022-03-11] VITALS (31 sets, daily range): BP systolic 74–140
--- NOTE | 2022-03-11 | NUR ---
TOTAL CARE GIVEN BED BATHED . PT HAS PASSED LOOSE GREEN BM
[2022-03-11] MEDS: NACL 0.9% 1,000 ML IV SCH (01:08)
[2022-03-11] MEDS: PROPOFOL DRIP 100 ML IV PRN (04:27)
--- NOTE | 2022-03-11 06:00 | NUR ---
BED BATHED AND LINEN CHANGED.ORAL SUCTION DONE VITALS UPDATED SEE LAB RESULTS
[2022-03-11] MEDS: metroNIDAZOLE 500 mg/NS 100 ML IV SCH ×2 (06:22→13:28)
[2022-03-11] MEDS: LevALBUTEROL HCL 1.25 MG/0.5 ML *CONC.* VIAL.NEB (XOPENEX CONC.) INH SCH (07:13)
[2022-03-11 07:23] LABS: BASOPHILS % (AUTO) 0.1 % (0.0-2.0); HEMATOCRIT 35.3 % (36-54); LYMPHOCYTES # (AUTO) 0.1 K/uL (1.0-5.5); LYMPHOCYTES % (AUTO) 0.6 % (20.5-51.5); MEAN CORPUSCULAR VOLUME 84 fL (79.0-98.0); MONOCYTES # (AUTO) 0.2 K/uL (0.0-1.0); MONOCYTES % (AUTO) 1.5 % (1.7-9.3); NEUTROPHILS # (AUTO) 15.4 K/uL (1.8-7.7); NEUTROPHILS % (AUTO) 97.8 % (40.0-70.0); PLATELET COUNT (AUTO) 144 K/uL (130-430); RED BLOOD CELL COUNT(AUTO) 4.19 MIL/uL (4.2-6.2); RED CELL DISTRIBUTION WIDTH 18.1 % (9.0-15.0); WHITE BLOOD COUNT (AUTO) 15.8 K/uL (4.8-10.8)
[2022-03-11 08:14] LABS: ANION GAP 16 (5-15); CHLORIDE 115 mmol/L (98-107); CREATININE 4.84 mg/dL (0.55-1.30); GLUCOSE 228 mg/dL (70-99); POTASSIUM 4.8 mmol/L (3.5-5.1)
[2022-03-11] MEDS: INSULIN GLARGINE 100 UNITS/ML 10 ML VIAL SUBCUT SCH (09:00)
[2022-03-11 09:21] LABS: CALCIUM 6.8 mg/dL (8.4-11.0); UREA NITROGEN, BLOOD 155 mg/dL (8-21)
[2022-03-11] MEDS: PANTOPRAZOLE SODIUM 40 MG/VIAL (PROTONIX) IVP SCH (09:35)
[2022-03-11] MEDS: levETIRAcetam 500 MG in NS 100 ML IV SCH (09:35)
[2022-03-11] MEDS: METHYLPREDNISOLONE SOD SUCC 40 MG/ML VIAL IVP SCH (09:36)
[2022-03-11] MEDS: ASPIRIN 81 MG TAB.CHEW PO SCH (09:36)
[2022-03-11] MEDS: DOCUSATE SODIUM 100 MG CAPSULE PO SCH (09:36)
[2022-03-11] MEDS: MEGESTROL ACETATE 400 MG/10 ML UDC PO SCH (09:37)
[2022-03-11] MEDS: MULTIVITAMINS TAB 1 TABLET PO SCH (09:37)
[2022-03-11] MEDS: CLOPIDOGREL BISULFATE 75 MG TABLET PO SCH (09:38)
[2022-03-11] MEDS: MEMANTINE HCL 5 MG TABLET PO SCH (09:38)
[2022-03-11] MEDS: METOPROLOL TARTRATE 25 MG TABLET PO SCH (09:40)
--- NOTE | 2022-03-11 11:05 | NUR ---
TERMINALLY EXTUBATE I SPOKE WITH SON BENJAMIN AND DAUGHTER IN [place]. BENJAMIN WANTS TO TERMINALLY EXTUBATE PT. THERE IS NO FAMILY THAT WOULD LIKE TO BE PRESENT. I ASKED SEVERAL TIMES JUST TO CLARIFY. IRMA FUNEZ PRESENT AND WITNESSED CONVERSATION.
[2022-03-11] MEDS: FLUCONAZOLE 100 mg/ NS 50 ML IV SCH (11:44)
--- NOTE | 2022-03-11 12:00 | NUR ---
Comfort measures initiated per family wishes and MD orders. Patient started on Morphine infusion for comfort. Continue to Monitor.
--- NOTE | 2022-03-11 15:00 | NUR ---
Patient terminally extubated per family wishes and MD orders. Patient placed on 2L oxygen via nasal cannula. Continue to monitor.
--- NOTE | 2022-03-11 15:19 | NUR ---
RT NOTE: 1519 Pt terminally extubated and placed on 2LPM nasal cannula for comfort. IRMA Palomares at bedside.
--- NOTE | 2022-03-11 15:34 | NUR ---
Patient in Asystole rhythm with no palpable Carotid and Femoral pulses. No heart sounds heard on auscultation and no lung sounds or excursion present. Assessment confirmed by IRMA Contreras with time of cardiac noted at 1534. MD Herrera also notified of cardiac . End of watch.
--- NOTE | 2022-03-11 15:40 | NUR ---
FAMILY ADVISED SPOKE WITH FAMILY. TOD WAS 1534. FAMILY HAS SELECTED A MORTUARY BUT DOES NOT REMEMBER WHICH ONE. THEY WILL CALL BACK TO ADVISE.
--- NOTE | 2022-03-11 16:25 | NUR ---
[facility] WILL NOT BE MOVING FORWARD WITH PT. REFERENCE NUMBER [id number].
--- NOTE | 2022-03-11 16:49 | NUR ---
[employer] NOTIFIED SPOKE WITH RAMA. THIS IS NOT A HUMAN RES[employer]GER [employer]'S CASE. PT IS RELEASED TO THE FAMILY.
--- NOTE | 2022-03-11 19:49 | NUR ---
Remains picked up by [facility] [employer] dental detail representative accompanied by security.
== END 2022-03-09 15:34 | DRG 207 ==
LOC: SED 15:16 → STU 18:14 → SIC 03-03 10:06
PROVIDERS: ADMIT Family Medicine; ATTEND Family Medicine
PROC: 0W9B3ZZ Drainage of Left Pleural Cavity, Percutaneous Approach (ICD-10-PCS; 2022-02-28)
PROC: 5A1955Z Respiratory Ventilation, Greater than 96 Consecutive Hours (ICD-10-PCS; principal; 2022-03-03)
PROC: 5A09357 Assistance with Respiratory Ventilation, Less than 24 Consecutive Hours, Continuous Positive Airway Pressure (ICD-10-PCS; 2022-03-03)
PROC: 0BH17EZ Insertion of Endotracheal Airway into Trachea, Via Natural or Artificial Opening (ICD-10-PCS; 2022-03-03)
DX: J18.9 Pneumonia, unspecified organism (principal); J96.00 Acute respiratory failure, unspecified whether with hypoxia or hypercapnia; I21.4 Non-ST elevation (NSTEMI) myocardial infarction; G93.41 Metabolic encephalopathy; N17.0 Acute kidney failure with tubular necrosis; I13.0 Hypertensive heart and chronic kidney disease with heart failure and stage 1 through stage 4 chronic kidney disease, or unspecified chronic kidney disease; I50.40 Unspecified combined systolic (congestive) and diastolic (congestive) heart failure; I42.9 Cardiomyopathy, unspecified; E78.5 Hyperlipidemia, unspecified; I25.10 Atherosclerotic heart disease of native coronary artery without angina pectoris; G40.909 Epilepsy, unspecified, not intractable, without status epilepticus; Z20.822 Contact with and (suspected) exposure to COVID-19; E86.0 Dehydration; F03.90 Unspecified dementia, unspecified severity, without behavioral disturbance, psychotic disturbance, mood disturbance, and anxiety; R13.10 Dysphagia, unspecified; N18.2 Chronic kidney disease, stage 2 (mild); E11.22 Type 2 diabetes mellitus with diabetic chronic kidney disease; I25.2 Old myocardial infarction; Z90.49 Acquired absence of other specified parts of digestive tract; Z86.73 Personal history of transient ischemic attack (TIA), and cerebral infarction without residual deficits; Z79.899 Other long term (current) drug therapy; Z79.02 Long term (current) use of antithrombotics/antiplatelets; I46.9 Cardiac arrest, cause unspecified
CPT/HCPCS: 32555; 36415; 36600; 71045; 71250-TC; 76376; 76604; 76770; 80048; 80053; 80061; 82550; 82803-TC; 82962; 83605; 83735; 83880; 84100; 84443; 84478; 84484; 85025; 85610-TC; 85730-TC; 86886; 86900; 86901; 87040; 87070-TC; 87081; 87205-TC; 87210-TC; 93005; 93306; 94002; 94003; 94640; 94660; 94760; 96374; 99291; C9113; G0378; J0360; J0456; J0690; J0692; J0696; J1030; J1120; J1450; J1650; J1815; J1940; J1953; J2250; J2270; J2543; J2704; J3010; J3475; J3480; J3490; J7050; J7060; J7612; P9046